=== PATIENT | female | born 1935 | race Caucasian/White ===

== ENCOUNTER 2016-12-26 08:05 | Inpatient (IN) | payer MEDICARE, OTHER ==
[~2016-12-26] VITALS: Ht 165.1 cm; Wt 90.7 kg
[~2016-12-26 08:05] MED LIST: ASPI-535 PO; MONT10TA21 PO; MULT-754 PO; NEBI10TA2 PO; SIMV40TA3 PO
[2016-12-26] MEDS ORDERED: ONDANSETRON 4 MG INJ IV STA (08:06)
[2016-12-26] MEDS ORDERED: morphine 2 MG INJ IV ONE (08:30)
[2016-12-26] MEDS ORDERED: ASPI-664 PO (08:40)
[2016-12-26] MEDS ORDERED: MONT10TA21 PO (08:40)
[2016-12-26] MEDS ORDERED: SIMV40TA2 PO (08:40)
--- NOTE | 2016-12-26 08:40 | RADRPT ---
PROCEDURE: XR Chest. CLINICAL INDICATION: Chest pain. TECHNIQUE: Single frontal view. COMPARISON: None. FINDINGS: The lungs are clear. The heart size is normal. There is calcification in the aorta consistent with atherosclerosis. There is no pleural effusion. There is no pneumothorax. IMPRESSION: 1. Atherosclerosis. 2. Otherwise normal chest radiograph. RPTAT: QQ .Clive Rodriguez MD, MD Date Time Electronically viewed and signed by .Clive Rodriguez MD, MD on 12/26/2016 08:40 .R/
--- NOTE | 2016-12-26 08:41 | RADRPT ---
PROCEDURE: XR left elbow. CLINICAL INDICATION: Left elbow pain. TECHNIQUE: 3 views. Frontal, lateral, and oblique. COMPARISON: No prior study is available for comparison. FINDINGS: There is no fracture or dislocation. The soft tissues are normal. Articular surfaces are intact. There is no lytic or blastic lesion. There is no radiopaque foreign body. IMPRESSION: 1. Unremarkable images of the left elbow. RPTAT: QQ .Clive Rodriguez MD, MD Date Time Electronically viewed and signed by .Clive Rodriguez MD, on 12/26/2016 08:40 .R/
--- NOTE | 2016-12-26 08:42 | RADRPT ---
PROCEDURE: XR Left Hip. CLINICAL INDICATION: Trauma. Left hip pain. TECHNIQUE: Single frontal view. COMPARISON: No prior studies are available for comparison. FINDINGS: There is an acute comminuted intertrochanteric fracture of the left hip with varus deformity. The f racture extends through the left lesser trochanter. There is no other fracture and there is no disl ocation. The soft tissues are normal. Articular surfaces are intact. There is no lytic or blastic lesion. There is no radiopaque foreign body. IMPRESSION: 1. Acute comminuted intertrochanteric fracture of the left hip with varus deformity. RPTAT: QQ .Clive Rodriguez MD, MD Date Time Electronically viewed and signed by .Clive Rodriguez MD, on 12/26/2016 08:41 .R/
[2016-12-26 09:15] LABS: BASOPHIL # 0.1 10^3/ul (0.0-0.1); BASOPHILS % 0.9 % (0.0-2.0); EOSINOPHILS # 0.1 10^3/ul (0.0-0.5); EOSINOPHILS % 1.1 % (0.0-7.0); HEMATOCRIT 40.4 % (37.0-47.0); HEMOGLOBIN 13.6 g/dl (12.0-16.0); LYMPHOCYTES # 2.3 10^3/ul (0.8-2.9); LYMPHOCYTES % 41.4 % (15.0-51.0); MEAN CORPUSCULAR HEMOGLOBIN 32.8 pg (29.0-33.0); MEAN CORPUSCULAR HGB CONC 33.7 g/dl (32.0-37.0); MEAN CORPUSCULAR VOLUME 97.3 fl (82.0-101.0); MEAN PLATELET VOLUME 9.9 fl (7.4-10.4); MONOCYTE # 0.5 10^3/ul (0.3-0.9); MONOCYTES % 8.5 % (0.0-11.0); NEUTROPHILS % 47.7 % (39.0-77.0); PLATELET COUNT 188 10^3/UL (140-415); RED BLOOD COUNT 4.15 10^6/ul (4.20-5.40); RED CELL DISTRIBUTION WIDTH 13.2 % (11.5-14.5); WHITE BLOOD COUNT 5.5 10^3/ul (4.8-10.8)
--- NOTE | 2016-12-26 09:25 | ERA ---
ER Documentation Chief Complaint Date/Time DATE: 12/26/16 TIME: 09:22 Chief Complaint BIB [facility] FOR GROUND LEVEL FALL. LEFT HIP PAIN WITH SHORTENING. HPI This is an 81-year-old female who presents to the emergency room after a ground- level fall. The patient states that she was taking her trash out and she slipped and fell. The patient is stating that she is having pain in her left hip. She could not ambulate and 911 was called. EMS transferred the patient to the ER. The patient denies hitting her head or any loss of consciousness. ROS All systems reviewed and are negative except as per history of present illness. Medications Home Meds Reported Medications Simvastatin* (Zocor*) 40 Mg Tablet, 40 MG PO QHS, #30 TAB 12/26/16 Montelukast Sodium* (Singulair*) 10 Mg Tablet, 10 MG PO QHS, #30 TAB 12/26/16 Discontinued Reported Medications Aspirin (Low Dose Aspirin) 81 Mg Tablet.dr, 81 MG PO DAILY, #30 TAB 12/26/16 Aspirin Ec (Aspir 81) 81 Mg Tablet.dr, 81 MG PO MWF 11/07/11 Multivitamins W-Minerals/Lut (Centrum Silver Tablet) 1 Tab Tablet, 1 TAB PO DAILY 11/07/11 Simvastatin (Simvastatin) 40 Mg Tablet, 40 MG PO HS 11/07/11 Montelukast Sodium* (Singulair*) 10 Mg Tablet, 10 MG PO DAILY 11/07/11 Nebivolol Hcl* (Bystolic*) 10 Mg Tablet, 10 MG PO DAILY 11/07/11 Allergies Allergies: Coded Allergies: No Known Allergies (Verified Allergy, Unknown, 12/26/16) PMhx/Soc History of Surgery: Yes (LEFT WRIST ORIF; LEFT KNEE OPA) Anesthesia Reaction: No Hx Neurological Disorder: No Hx Respiratory Disorders: Yes Hx Cardiac Disorders: Yes Hx Psychiatric Problems: No Hx Miscellaneous Medical Probl: Yes (HYPERLIPIDEMIA) Hx Alcohol Use: Yes (WINE NIGHTLY) Hx Substance Use: No Hx Tobacco Use: No Smoking Status: Never smoker Physical Exam Vitals Vital Signs Date Time Temp Pulse Resp B/P Pulse Ox O2 Delivery O2 Flow Rate FiO2 12/26/16 08:22 Nasal Cannula 2 12/26/16 08:09 97.9 80 19 141/86 100 Physical Exam INITIAL VITAL SIGNS: Reviewed by me GENERAL: The patient is well developed and appropriate for usual state of health in no apparent distress HEENT: Pupils equal, round, and reactive to light. EOMI. There is no scleral icterus. NECK: C-spine is soft and supple, there is no meningismus. There is no cervical lymphadenopathy. LUNGS: Clear to auscultation bilaterally. There are no rales, wheezes or rhonchi. HEART: Regular rate and rhythm, no murmurs, clicks, rubs or gallops. ABDOMEN: Soft, non-tender, non-distended. There are bowel sounds in all four quadrants. No rebound or guarding. EXTREMITIES: Shortening of the left lower extremity with external rotation, there is no peripheral cyanosis or edema. No focal swelling or erythema. NEUROLOGICAL: The patient moves all four extremities with 5/5 strength. Cranial nerves II - XII are intact. Normal gait. Alert and oriented SKIN: There is no apparent rash or petechiae. HEME/LYMPHATIC: There is no evidence of excessive bruising or lymphedema. PSYCHIATRIC: The patient does not appear anxious or depressed. Result Diagram: 12/26/16 0840 Results 24 hrs Laboratory Tests Test 12/26/16 08:40 White Blood Count 5.510^3/ul Red Blood Count 4.1510^6/ul Hemoglobin 13.6g/dl Hematocrit 40.4% Mean Corpuscular Volume 97.3fl Mean Corpuscular Hemoglobin 32.8pg Mean Corpuscular Hemoglobin Concent 33.7g/dl Red Cell Distribution Width 13.2% Platelet Count 89479^3/UL Mean Platelet Volume 9.9fl Neutrophils % 47.7% Lymphocytes % 41.4% Monocytes % 8.5% Eosinophils % 1.1% Basophils % 0.9% Nucleated Red Blood Cells % 0.0/100WBC Neutrophils # (Manual) 310^3/ul Lymphocytes # 2.310^3/ul Monocytes # 0.510^3/ul Eosinophils # 0.110^3/ul Basophils # 0.110^3/ul Nucleated Red Blood Cells # 0.010^3/ul Current Medications Medications (Trade) Dose Ordered Sig/Dangelo Route PRN Reason Start Time Stop Time Status Last Admin Dose Admin Morphine Sulfate (morphine) 2 mg ONCE ONCE IV 12/26/16 08:30 12/26/16 08:31 DC 12/26/16 09:06 Ondansetron HCl (Zofran Inj) 4 mg ONCE STAT IV 12/26/16 08:06 12/26/16 08:08 DC 12/26/16 09:03 Procedures/MDM Chest X-ray 1V Interpreted by me: Soft Tissue: No acute abnormalities Bones: No acute abnormalities Mediastinum/Cardiac Silhouette/Lungs: [No acute abnormalities] X-ray Elbow 3V Interpreted by me: Fat Pads: [Normal] Bones: [No fracture] Joints: [No dislocation] Foreign body: [None] X-ray Hip 2V Interpreted by me: Bones: Left-sided intertrochanteric fracture Joints: [No dislocation] Foreign body: [None] EKG: Rate/Rhythm: [Normal Sinus Rhythm] QRS, ST, T-waves: [No changes consistent w/ acute ischemia] Impression: [No evidence of ischemia or arrhythmia] This 81-year-old female presents to the ER for evaluation of left-sided hip pain. When I evaluated this patient she did have shortening and external rotation of her left hip. The patient was found to have a left-sided intertrochanteric fracture. She will be placed in for admission at this time for orthopedic evaluation by our orthopedist, Dr. Martin. She will be admitted to the hospitalist, Dr. son. She is [facility] for [facility] at this time. She is aware of her condition. Her pain is controlled with morphine at this time. She will be kept n.p.o. Pereira was placed in the emergency room as well. Departure Diagnosis: Primary Impression: Intertrochanteric fracture of left femur Additional Impression: Fall from ground level Condition: Stable JARAD BATISTA DO Dec 26, 2016 09:25
[2016-12-26 09:36] LABS: ANION GAP 14 (8-16); BLOOD UREA NITROGEN 17 mg/dl (7-20); CALCIUM 9.3 mg/dl (8.4-10.2); CARBON DIOXIDE 23 mmol/L (21-31); CHLORIDE 106 mmol/L (97-110); CREATININE 0.87 mg/dl (0.44-1.00); GLUCOSE 105 mg/dl (70-220); POTASSIUM 4.7 mmol/L (3.5-5.1); SODIUM 138 mmol/L (135-144)
[2016-12-26] MEDS ORDERED: SOD CHLORIDE 0.9% 1,000 ML IV SCH (09:45)
[2016-12-26] MEDS ORDERED: ACETAMINOPHEN 325 MG TAB PO PRN (10:00)
[2016-12-26] MEDS ORDERED: ONDANSETRON 4 MG INJ IV PRN (10:00)
[2016-12-26 10:10] LABS: TROPONIN-I < 0.012 ng/ml (0.00-0.12)
[2016-12-26] MEDS ORDERED: DEXTROSE 5%-0.45% NACL 1,000 ML IV SCH (11:21)
[2016-12-26] MEDS ORDERED: NACL 0.9% 3 ML SYG IV SCH (11:30)
[2016-12-26] MEDS ORDERED: HYDROmorphONE 1 MG/ML SYG IV STA (11:42)
[2016-12-26 14:54] LABS: CK-MB 0.73 ng/ml (0.0-2.4); TROPONIN-I 0.033 ng/ml (0.00-0.12)
--- NOTE | 2016-12-26 15:20 | CONS ---
DATE OF ADMISSION: 12/26/2016 DATE OF CONSULTATION: 12/26/2016 CHIEF COMPLAINT: Left hip pain. HISTORY OF PRESENT ILLNESS: This is an 81-year-old female, who had a ground level fall at home. She was complaining of left groin pain. She was unable to stand after the fall. She denies any prior groin pain. She denies any loss of consciousness. She denies any chest pain. She has no other complaints. PAST MEDICAL HISTORY: Dyslipidemia, COPD. MEDICATION: 1. Simvastatin 40 mg daily. 2. Singular 10 mg daily. 3. Multivitamins. PAST SURGICAL HISTORY: Left wrist open reduction and internal fixation, left knee arthroscopy. SOCIAL HISTORY: She lives with her . Denies tobacco, alcohol or drug use. FAMILY HISTORY: Noncontributory. ALLERGIES: NO KNOWN DRUG ALLERGIES. REVIEW OF SYSTEMS: Negative, except per HPI. PHYSICAL EXAMINATION: VITAL SIGNS: 97.9, 141/86, pulse of 80, respiratory rate of 19. GENERAL: Patient is alert and oriented x3. She is cooperative. LEFT LOWER EXTREMITY: There are no open wounds. There are no deformities. She has 5/5 function of her gastroc soleus, tibialis anterior. Her calf is soft, nontender. She has a palpable dorsalis pedis pulse. LABORATORY DATA: White blood cell count 5.5, hemoglobin 13 6, hematocrit 40.4, platelets 188,000. X-RAYS: Left hip: X-rays, left hip, demonstrate an oblique displaced intertrochanteric femur fracture. There is displacement of the lesser trochanter. There is slight comminution of the greater trochanter. IMPRESSION: An 81-year-old female, who had a mechanical fall resulting in a left closed oblique displaced intertrochanteric femur fracture. PLAN: Patient will be nonweightbearing on left lower extremity. She will be admitted to the hospitalist service. She will have bilateral lower extremity SCDs while in bed. I discussed treatment options with the patient. I discussed the risks associated with surgery, which include infection, deep venous thrombosis, pulmonary embolism, damage to neurovascular structures, heart attack, stroke, need for blood transfusion, risks associated with anesthesia and even . I also explained to the patient and her [id number] that there is up to a 35 percent chance of 1-year mortality. The plan will be to proceed with the left hip cephalomedullary nailing. All questions were answered. Dictated By: Sanjay King MD /marixa/citlaly /Document#: [id number]
--- NOTE | 2016-12-26 16:14 | HP ---
Date/Time of Note Date/Time of Note DATE: 12/26/16 TIME: 16:00 Assessment/Plan VTE Prophylaxis VTE Prophylaxis Intervention: other Lines/Catheters IV Catheter Type (from Nrs): Saline Lock Urinary Cath still in place: No Assessment/Plan Chief Complaint/Hosp Course 81 yo female without significant PMH who presents after hip fracture from mechanical fall Hip fracture: - Needs OR per Dr Martin. Likely on Friday - Patient is medically optimized for surgery VTE ppx: LWMH until 12 hour before OR Problems: HPI/ROS Admit Date/Time Admit Date/Time Hx of Present Illness 81 yo female wihtout significant PMH who presents after falling in her garden. Boyds immediate pain in hip and cracking. Laid in garden for an hour before found. Brought to ED and found to have hip fracture. Very clear that she tripped over a small gate in her garden, this was not syncope. Currently feels well without pain at rest Denies h/o angina or CHF. Easily able to climb a flight of stairs without symptoms prior to this. PMH/Family/Social Past Medical History Medical History: no pertinent history Past Surgical History Past Surgical Hx: noncontributory Social History Alcohol Use: none Smoking Status: Never smoker Drug Use: none Exam/Review of Systems Vital Signs Vitals Vital Signs Date Time Temp Pulse Resp B/P Pulse Ox O2 Delivery O2 Flow Rate FiO2 12/26/16 11:46 78 16 125/72 98 Room Air 12/26/16 08:22 2 12/26/16 08:09 97.9 Exam Exam WEll appearing elderly femal resting comfortably in NAD RRR, no m/r/g Ctab abd soft nt nd LLE is shortened and ext rotated, good pulses, full sensation No edema Labs Result Diagram: 12/26/16 0840 12/26/16 0840 Medications Medications Current Medications Sodium Chloride (NS) 1,000 ml @ 80 mls/hr [id number] IV Last administered on 12/26t 13:07; Admin Dose 80 MLS/HR; Start 12/26/16 at 09:45; Stop 12/26/16 at 22: 14 Acetaminophen/ Hydrocodone Bitart ([place] (5/325)) 2 tab Q6H PRN PO SEVERE PAIN LEVEL 7-10; Start 12/26/16 at 11:30 HUMA MAHMOOD MD Dec 26, 2016 16:10
[2016-12-26 16:29] VITALS: TEMP 97.4
[2016-12-26] MEDS ORDERED: ENOXAPARIN 30 MG/0.3 ML SYG SC ONE (16:30)
--- NOTE | 2016-12-26 17:00 | RADRPT ---
PROCEDURE: XR Left Shoulder. CLINICAL INDICATION: Trauma. Left shoulder pain and decreased range of motion. TECHNIQUE: Three views. Frontal internal rotation, frontal external rotation, and scapular Y-view . COMPARISON: No prior study is available for comparison. FINDINGS: There is no fracture or dislocation. The soft tissues are normal. Articular surfaces are intact. There is no lytic or blastic lesion. There is no radiopaque foreign body. IMPRESSION: 1. Normal images of the left shoulder. RPTAT: QQ .Clive Rodriguez MD, MD Date Time Electronically viewed and signed by .Clive Rodriguez MD, MD on 12/26/2016 17:00 .R/
[2016-12-26 17:32] VITALS: BP 127/64; RESP 18
[2016-12-26 17:50] VITALS: Ht 165.1 cm; Wt 90.7 kg
[2016-12-26 17:51] VITALS: BP 127/64; PULSE 89; RESP 17
[2016-12-26 19:23] VITALS: BP 111/58; RESP 16
[2016-12-26] MEDS: MONTELUKAST 10 MG TAB PO SCH (20:13)
[2016-12-26 21:07] LABS: CK-MB 0.96 ng/ml (0.0-2.4); TROPONIN-I 0.027 ng/ml (0.00-0.12)
[2016-12-27] MEDS: HYDROCODONE/APAP (5/325) TAB PO PRN ×3 (00:47→15:36)
[2016-12-27 02:00] VITALS: BP 104/54; RESP 18
[2016-12-27 05:59] LABS: BASOPHILS % 0.1 % (0.0-2.0); HEMATOCRIT 33.2 % (37.0-47.0); HEMOGLOBIN 10.9 g/dl (12.0-16.0); LYMPHOCYTES # 2.2 10^3/ul (0.8-2.9); LYMPHOCYTES % 25.3 % (15.0-51.0); MEAN CORPUSCULAR HEMOGLOBIN 32.4 pg (29.0-33.0); MEAN CORPUSCULAR HGB CONC 32.8 g/dl (32.0-37.0); MEAN CORPUSCULAR VOLUME 98.8 fl (82.0-101.0); MEAN PLATELET VOLUME 10.2 fl (7.4-10.4); MONOCYTE # 0.9 10^3/ul (0.3-0.9); MONOCYTES % 10.5 % (0.0-11.0); NEUTROPHILS % 63.9 % (39.0-77.0); PLATELET COUNT 180 10^3/UL (140-415); RED BLOOD COUNT 3.36 10^6/ul (4.20-5.40); RED CELL DISTRIBUTION WIDTH 13.4 % (11.5-14.5); WHITE BLOOD COUNT 8.7 10^3/ul (4.8-10.8)
[2016-12-27 06:37] LABS: PARTIAL THROMBOPLASTIN TIME 30.1 Sec (25.0-35.0)
[2016-12-27 06:46] LABS: INR 1.17; PT RATIO 1.2
[2016-12-27 06:51] LABS: ALBUMIN 3.2 g/dl (3.3-4.9); ALBUMIN/GLOBULIN RATIO 1.1; BILIRUBIN,INDIRECT 0.3 mg/dl (0-1.1); BILIRUBIN,TOTAL 0.3 mg/dl (0.2-1.3); CALCIUM 8.7 mg/dl (8.4-10.2); CREATININE 0.94 mg/dl (0.44-1.00); TOTAL PROTEIN 6.1 g/dl (6.1-8.1)
[2016-12-27 08:10] VITALS: BP 97/51; RESP 20
--- NOTE | 2016-12-27 18:01 | PN ---
Date/Time of Note Date/Time of Note DATE: 12/27/16 TIME: 17:58 Assessment/Plan VTE Prophylaxis VTE Prophylaxis Intervention: LMWH Lines/Catheters IV Catheter Type (from Nrsg): Peripheral IV Urinary Cath still in place: Yes Reason Cath still needed: other (indicate) (hip fracture ) Assessment/Plan Assessment/Plan 81 yo female 1. S/p Fall 2. Left hip fracture, Intertrochanteric, Comminuted 3. Intractable left hip pain Plan: pt has no significant pMHX, lab work up unremakabel, medically optimized for surgery wtih appropriate sugical risks VTE ppx: LWMH until 12 hour before OR ORtho is plannign for surgery tomorrow Subjective 24 Hr Interval Summary Free Text/Dictation no acute events, Bp stable,afebrile, BP stable Exam/Review of Systems Vital Signs Vitals Vital Signs Date Time Temp Pulse Resp B/P Pulse Ox O2 Delivery O2 Flow Rate FiO2 12/27/16 08:10 98.0 80 20 97/51 98 12/27/16 02:25 Nasal Cannula 4.0 Intake and Output 12/26/16 12/26/16 12/27/16 15:00 23:00 07:00 Intake Total 300 ml 120 ml Output Total 400 ml Balance 300 ml -280 ml Exam WEll appearing elderly femal resting comfortably in NAD RRR, no m/r/g Ctab abd soft nt nd LLE is shortened and ext rotated, good pulses, full sensation No edema Results Result Diagram: 12/27/16 0526 12/27/16 0526 Results 24 hrs Laboratory Tests Test 12/26/16 20:29 12/27/16 05:26 Creatine Kinase 64 Creatine Kinase Index 1.5 Creatinine Kinase MB (Mass) 0.96 Troponin I 0.027 White Blood Count 8.7 # Red Blood Count 3.36 L Hemoglobin 10.9 L Hematocrit 33.2 L Mean Corpuscular Volume 98.8 Mean Corpuscular Hemoglobin 32.4 Mean Corpuscular Hemoglobin Concent 32.8 Red Cell Distribution Width 13.4 Platelet Count 180 Mean Platelet Volume 10.2 Neutrophils % 63.9 Lymphocytes % 25.3 Monocytes % 10.5 Eosinophils % 0.0 Basophils % 0.1 Nucleated Red Blood Cells % 0.0 Neutrophils # (Manual) 5.5 Lymphocytes # 2.2 Monocytes # 0.9 Eosinophils # 0.0 Basophils # 0.0 Nucleated Red Blood Cells # 0.0 Prothrombin Time 15.0 H Prothrombin Time Ratio 1.2 INR International Normalized Ratio 1.17 Activated Partial Thromboplast Time 30.1 Sodium Level 139 Potassium Level 5.0 Chloride Level 104 Carbon Dioxide Level 26 Anion Gap 14 Blood Urea Nitrogen 22 H Creatinine 0.94 Glucose Level 116 Calcium Level 8.7 Total Bilirubin 0.3 Direct Bilirubin 0.00 Indirect Bilirubin 0.3 Aspartate Amino Transf (AST/SGOT) 19 Alanine Aminotransferase (ALT/SGPT) 28 Alkaline Phosphatase 73 Total Protein 6.1 Albumin 3.2 L Globulin 2.90 Albumin/Globulin Ratio 1.10 Medications Medications Current Medications Acetaminophen/ Hydrocodone Bitart ([place] (5/325)) 2 tab Q6H PRN PO SEVERE PAIN LEVEL 7-10 Last administered on 12/27/16 15:36; Admin Dose 2 TAB; Start at 11:30 Montelukast Sodium 10 mg 10 mg QHS PO Last administered on 12/26/16 20:13; Admin Dose 10 MG; Start 12/26/16 at 21:00 Dextrose/Sodium Chloride (D5-1/2ns) 1,000 ml @ 70 mls/hr [id number] IV ; Start at 23:59 JEN LIANG MD Dec 27, 2016 18:00
[2016-12-27] MEDS: MONTELUKAST 10 MG TAB PO SCH (19:42)
[2016-12-27 20:07] VITALS: BP 119/57; RESP 18
[2016-12-27] MEDS: DEXTROSE 5%-0.45% NACL 1,000 ML IV SCH (23:59)
[2016-12-28] VITALS (22 sets, daily range): BP systolic 93–123; BP diastolic 45–71; PULSE 82–129; RESP 10–19
[2016-12-28 06:33] LABS: BASOPHILS % 0.4 % (0.0-2.0); EOSINOPHILS % 0.2 % (0.0-7.0); HEMATOCRIT 29.1 % (37.0-47.0); HEMOGLOBIN 9.6 g/dl (12.0-16.0); LYMPHOCYTES # 2.2 10^3/ul (0.8-2.9); MEAN CORPUSCULAR HEMOGLOBIN 32.2 pg (29.0-33.0); MEAN CORPUSCULAR VOLUME 97.7 fl (82.0-101.0); MEAN PLATELET VOLUME 10.6 fl (7.4-10.4); MONOCYTES % 12.6 % (0.0-11.0); NEUTROPHILS % 59.7 % (39.0-77.0); PLATELET COUNT 158 10^3/UL (140-415); RED BLOOD COUNT 2.98 10^6/ul (4.20-5.40); RED CELL DISTRIBUTION WIDTH 13.2 % (11.5-14.5); WHITE BLOOD COUNT 8.3 10^3/ul (4.8-10.8)
[2016-12-28 07:14] LABS: ALBUMIN/GLOBULIN RATIO 0.96; BILIRUBIN,INDIRECT 0.4 mg/dl (0-1.1); BILIRUBIN,TOTAL 0.4 mg/dl (0.2-1.3); CALCIUM 8.5 mg/dl (8.4-10.2); CREATININE 0.75 mg/dl (0.44-1.00); POTASSIUM 4.6 mmol/L (3.5-5.1); TOTAL PROTEIN 6.1 g/dl (6.1-8.1)
[2016-12-28 07:27] LABS: INR 1.02; PARTIAL THROMBOPLASTIN TIME 29.2 Sec (25.0-35.0); PROTIME 13.4 Sec (12.2-14.2)
[2016-12-28] MEDS ORDERED: ROCURONIUM 50 MG INJ ONE (07:52)
[2016-12-28] MEDS ORDERED: PROPOFOL 20 ML ONE (07:52)
[2016-12-28] MEDS ORDERED: FENTAnyl 50 MCG/ML VIAL ONE (07:52)
[2016-12-28] MEDS ORDERED: LIDOCAINE 2% (SDV) 5 ML INJ ONE (07:52)
[2016-12-28] MEDS ORDERED: MIDAZOLAM 1 MG/ML 2 ML INJ ONE (07:53)
[2016-12-28] MEDS ORDERED: ROPIVACAINE 0.5 % 30 ML VIAL ONE ×2 (07:53→07:54)
[2016-12-28] MEDS ORDERED: MEPERIDINE 25 MG INJ IV PRN (08:00)
[2016-12-28] MEDS ORDERED: HYDROmorphONE (0.2 MG/ML) 10ML SYG IV PRN ×2 (08:00)
[2016-12-28] MEDS ORDERED: FENTAnyl 50 MCG/ML VIAL IV PRN (08:00)
[2016-12-28] MEDS ORDERED: PROCHLORPERAZINE 10 MG INJ IV PRN (08:00)
[2016-12-28] MEDS ORDERED: hydrALAzine 20 MG INJ IV PRN (08:00)
[2016-12-28] MEDS ORDERED: LABETALOL HCL 20MG INJ IV PRN (08:00)
[2016-12-28] MEDS ORDERED: EPHEDrine SULFATE 50 MG/5 ML SYG IV PRN (08:00)
[2016-12-28] MEDS ORDERED: ONDANSETRON 4 MG INJ IV PRN (08:00)
[2016-12-28] MEDS ORDERED: DIPHENHYDRAMINE 50 MG INJ IV PRN (08:00)
[2016-12-28] MEDS ORDERED: PHENYLephrine (100 MCG/ML) 5ML SYG ONE ×2 (08:16→11:19)
[2016-12-28] MEDS ORDERED: METOCLOPRAMIDE 10 MG INJ ONE (09:02)
[2016-12-28] MEDS ORDERED: ONDANSETRON 4 MG INJ ONE ×2 (09:02→11:54)
[2016-12-28] MEDS ORDERED: DEXAMETHASONE 4 MG/ML 1 ML INJ ONE (09:02)
[2016-12-28] MEDS ORDERED: ALBUMIN HUMAN 5% 250 ML ONE ×2 (09:19→11:22)
[2016-12-28] MEDS ORDERED: ACETAMINOPHEN 1000MG/100ML IV 100 ML ONE (09:19)
[2016-12-28] MEDS ORDERED: oxyCODONE 5 MG TAB PO PRN ×2 (09:30)
[2016-12-28] MEDS ORDERED: POLYMYXIN/BACITRACIN 1L IRRIG IRR ONE (09:38)
[2016-12-28] MEDS ORDERED: HYDROmorphONE 2 MG/ML SYG ONE (11:46)
[2016-12-28] MEDS ORDERED: SUGAMMADEX SODIUM 200 MG/2 ML VIAL IV ONE (11:48)
--- NOTE | 2016-12-28 13:05 | SIPON ---
Date/Time of Note Date/Time of Note DATE: 12/28/16 TIME: 13:03 Operative Report Preoperative Diagnosis Left intertrochanteric femur fracture Postoperative Diagnosis Same Operation/Procedure Performed 1. Left hip cephalomedullary nail, Mod 22 2. Interpretation left hip x-ray 2v, Left femur 2v Surgeon: BRANDIE ORO MD Anesthesia Type: general Estimated Blood Loss: other Transfusion Required: no Specimen: none Grafts/Implants Gamma Nail 11 x 380mm, 115mm lag screw, 45mm distal locking screw Complications: no BRANDIE ORO MD Dec 28, 2016 13:05
[2016-12-28] MEDS: CEFAZOLIN 1 GM/50 ML (PMX) 50 ML IVPB SCH ×2 (13:28→22:44)
[2016-12-28 13:29] LABS: BASOPHILS % 0.1 % (0.0-2.0); HEMATOCRIT 20.9 % (37.0-47.0); HEMOGLOBIN 7.1 g/dl (12.0-16.0); LYMPHOCYTES # 0.9 10^3/ul (0.8-2.9); LYMPHOCYTES % 6.6 % (15.0-51.0); MEAN CORPUSCULAR HEMOGLOBIN 33.6 pg (29.0-33.0); MEAN CORPUSCULAR VOLUME 99.1 fl (82.0-101.0); MEAN PLATELET VOLUME 9.8 fl (7.4-10.4); MONOCYTE # 0.8 10^3/ul (0.3-0.9); MONOCYTES % 6.1 % (0.0-11.0); NEUTROPHILS % 86.7 % (39.0-77.0); PLATELET COUNT 176 10^3/UL (140-415); RED BLOOD COUNT 2.11 10^6/ul (4.20-5.40); RED CELL DISTRIBUTION WIDTH 13.1 % (11.5-14.5); WHITE BLOOD COUNT 13.7 10^3/ul (4.8-10.8)
[2016-12-28 13:46] LABS: CALCIUM 7.5 mg/dl (8.4-10.2); CREATININE 0.81 mg/dl (0.44-1.00); POTASSIUM 4.6 mmol/L (3.5-5.1)
--- NOTE | 2016-12-28 14:28 | OPR ---
DATE OF OPERATION: 12/28/2016 PREOPERATIVE DIAGNOSIS: Left displaced 3-part intertrochanteric femur fracture. POSTOPERATIVE DIAGNOSIS: Left displaced 3-part intertrochanteric femur fracture. OPERATION PERFORMED: 1. Left hip open reduction, internal fixation with cephalomedullary nailing. CPT code 12963 with modifier 22 for complexity. 2. Interpretation of left hip x-ray, 2 views. 3. Interpretation of left femur x-rays, 2 views. ANESTHESIA: General. ANESTHESIOLOGIST: Dr. Mark. ESTIMATED BLOOD LOSS: 500 mL. COMPLICATIONS: None. SPECIMENS: None. DISPOSITION: PACU in stable condition. IMPLANT: prem gamma nail 11x 380 mm, 115mm lag screw, 45mm distal locking screw. INDICATIONS FOR PROCEDURES: An 81-year-old female, who had a mechanical fall resulting in a left closed displaced intertrochanteric femur fracture. Risks, benefits, and alternatives to surgical intervention were discussed with the patient and her family and informed consent was obtained. The risks of surgery include, but are not limited to, infection, deep venous thrombosis, pulmonary embolism, damage to neurovascular structures, need for blood transfusion, heart attack, stroke, and risks associated with anesthesia, malunion, nonunion, and need for revision surgery, and . OPERATIVE PROCEDURE: Patient was met in the preoperative suite. The correct op site was confirmed and marked. She was then brought into the operating room. After induction of general anesthesia, she was placed in a supine position on the fracture table. A closed reduction attempt was made on the fracture table. Reduction was obtained on the AP view, but no reduction was able to be obtained on the lateral view due to the flexion of the proximal fragment of the fracture. At this point, the left lower extremity was prepped and draped in the usual sterile fashion. Before starting, the timeout was taken to identify the correct operative site and confirmed that preoperative antibiotics consisting of 2 g of IV Ancef were administered. At this point, a small incision was made proximal to the greater trochanter. The guidewire was then placed at the tip of the greater trochanter. Due to the extensive flexion of the proximal fragment, reduction was unable to be maintained by closed means. At this point, a small 2 cm incision was made at the site of the fracture. Incision was carried down to the fascia. The fascia was then incised. Reduction forceps were then used to reduce the fracture. The guidewire was then advanced under fluoroscopic guidance, including AP and lateral of the hip as well as AP and lateral of the femur. The ball tipped guidewire was then advanced down the canal under fluoroscopic view. It was then measured to be 395 mm. Sequential reaming was then begun with a 10 mm reamer going up to a 13 mm reamer. A size 11 mm by 380 mm nail was then advanced over the guidewire under fluoroscopic guidance. Next, the trocar was then placed for the lag screw. The guidewire was then placed in the center position of the femoral head and neck under fluoroscopic guidance. It was then measured to 115 mm. The reamer was then advanced over the guidewire. A 115 mm lag screw was then placed. Attention was then turned to the distal locking hole. After making a small stab incision under of fluoroscopic imaging, a drill was then used to drill into the dynamic hole. The drill was then advanced bicortically and measured to 45 mm. A 45 mm screw was then placed into the dynamic hole. It was then confirmed in both AP and lateral x-rays to be in appropriate position. Final x-rays were then taken, which demonstrated that the fracture was in acceptable alignment with cortical contact. The wounds were then thoroughly irrigated. The fascia was closed using number 1 Vicryl interrupted [id number] fashion. The subcutaneous tissue was closed using 2-0 Vicryl and the skin with galdino. A sterile dressing was applied. The patient was awakened and taken to the postoperative care unit in stable condition. POSTOPERATIVE CARE: Patient will be weightbearing as tolerated. Patient will work with physical therapy. She will receive postoperative doses of IV Ancef. She will be placed on aspirin 325 mg p.o. b.i.d. for 6 weeks. Upon discharge, she will follow up in my office within 2 weeks postoperatively. MOD 22: This case was complex due to type of fracture, time required for surgery , difficulty with reduction fracture, and patient obesity. Dictated By: Sanjay King MD /marixa/saw /Document#: [id number] GRISELDA
--- NOTE | 2016-12-28 14:33 | RADRPT ---
PROCEDURE: XR FEMUR. CLINICAL INDICATION: Postop left femur. TECHNIQUE: AP and lateral views of the left femur were obtained. COMPARISON: 12/26/2016. FINDINGS: Patient is status post ORIF of intertrochanteric fracture by means of a femoral intramedullary frederic a nd dynamic compression screw. The fracture is affixed in good position and alignment. There is per sistent displacement of the lesser trochanter. Skin galdino are present and soft tissue air is audie cative of recent postop state. IMPRESSION: 1. Appropriate appearance to left femur after ORIF of intertrochanteric fracture in good position an d alignment. RPTAT: XX .Jorden Cadet MD, Date Time Electronically viewed and signed by .Jorden Cadet MD, on 12/28/2016 14:33 .T/
--- NOTE | 2016-12-28 14:35 | RADRPT ---
PROCEDURE: XR left Hip. CLINICAL INDICATION: Postop. TECHNIQUE: AP and frog lateral views of the left hip were performed. COMPARISON: 12/26/2016. FINDINGS: The patient is status post ORIF of left intertrochanteric fracture by means of intramedullary frederic an d dynamic compression screw. The fracture is in good position and alignment. There is persistent d isplacement of the lesser trochanter component. There is soft tissue air and skin galdino indicatin g immediate postop state. IMPRESSION: 1. Good position and alignment of left intertrochanteric fracture after ORIF by means of intramedul jason frederic and dynamic compression screw. RPTAT: XX .Jorden Cadet MD, Date Time Electronically viewed and signed by .Jorden Cadet MD, on 12/28/2016 14:34 .T/
--- NOTE | 2016-12-28 14:38 | RADRPT ---
PROCEDURE: Fluoroscopic guidance with x-ray images during ORIF of left femoral fracture. CLINICAL INDICATION: ORIF ofleft femoral fracture. TECHNIQUE: 14 x-ray images were obtained during ORIF ofleft femoral fracture. . COMPARISON: None available FINDINGS: 359.8 seconds of fluoroscopy time was utilized during pacemaker insertion. 14 x-ray images were obt ained during the procedure in progress for guidance. Cumulative dose total is 116.82 mGy. The left f emoral fracture was affixed in good position and alignment using an intramedullary frederic and dynamic c ompression screw. Procedure was performed by Dr. King. IMPRESSION: 1. Fluoroscopic guidance with x-ray images obtained for ORIF ofleft femoral fracture. . RPTAT: XX .Jorden Cadet MD, Date Time Electronically viewed and signed by .Jorden Cadet MD, on 12/28/2016 14:37 .T/
[2016-12-28] MEDS: DEXTROSE 5%-0.45% NACL 1,000 ML IV SCH (14:50)
--- NOTE | 2016-12-28 16:14 | PN ---
Date/Time of Note Date/Time of Note DATE: 12/28/16 TIME: 16:13 Assessment/Plan VTE Prophylaxis VTE Prophylaxis Intervention: LMWH Lines/Catheters IV Catheter Type (from Nrsg): Peripheral IV Urinary Cath still in place: Yes Reason Cath still needed: urinary retention Assessment/Plan Chief Complaint/Hosp Course 81 yo female without significant PMH who presents after hip fracture from mechanical fall Hip fracture: - s/p ORIF today - Pain control VTE ppx: [facility] starting tomorrow Problems: Subjective 24 Hr Interval Summary Free Text/Dictation Went to OR for hip surgery today, was difficult procedure Exam/Review of Systems Vital Signs Vitals Vital Signs Date Time Temp Pulse Resp B/P Pulse Ox O2 Delivery O2 Flow Rate FiO2 12/28/16 14:35 98.1 116 18 95/55 94 12/28/16 13:51 Room Air 12/28/16 12:41 10.0 Results Result Diagram: 12/28/16 1315 12/28/16 1315 Results 24 hrs Laboratory Tests Test 12/28/16 04:30 12/28/16 04:50 12/28/16 13:15 Sodium Level 134 L 136 Potassium Level 4.6 4.6 Chloride Level 99 103 Carbon Dioxide Level 28 19 L Anion Gap 12 19 #H Blood Urea Nitrogen 18 15 Creatinine 0.75 0.81 Glucose Level 107 202 Calcium Level 8.5 7.5 L Total Bilirubin 0.4 Direct Bilirubin 0.00 Indirect Bilirubin 0.4 Aspartate Amino Transf (AST/SGOT) 20 Alanine Aminotransferase (ALT/SGPT) 24 Alkaline Phosphatase 64 Total Protein 6.1 Albumin 3.0 L Globulin 3.10 Albumin/Globulin Ratio 0.96 White Blood Count 8.3 13.7 #H Red Blood Count 2.98 L 2.11 #L Hemoglobin 9.6 L 7.1 #L Hematocrit 29.1 L 20.9 #L Mean Corpuscular Volume 97.7 99.1 Mean Corpuscular Hemoglobin 32.2 33.6 H Mean Corpuscular Hemoglobin Concent 33.0 34.0 Red Cell Distribution Width 13.2 13.1 Platelet Count 158 176 Mean Platelet Volume 10.6 H 9.8 Neutrophils % 59.7 86.7 H Lymphocytes % 27.0 6.6 L Monocytes % 12.6 H 6.1 Eosinophils % 0.2 0.0 Basophils % 0.4 0.1 Nucleated Red Blood Cells % 0.0 0.0 Neutrophils # (Manual) 4.9 11.9 H Lymphocytes # 2.2 0.9 Monocytes # 1.0 H 0.8 Eosinophils # 0.0 0.0 Basophils # 0.0 0.0 Nucleated Red Blood Cells # 0.0 0.0 Prothrombin Time 13.4 Prothrombin Time Ratio 1.0 INR International Normalized Ratio 1.02 Activated Partial Thromboplast Time 29.2 Medications Medications Current Medications Acetaminophen/ Hydrocodone Bitart ([place] (5/325)) 2 tab Q6H PRN PO SEVERE PAIN LEVEL 7-10 Last administered on 12/27/16 15:36; Admin Dose 2 TAB; Start at 11:30 Montelukast Sodium 10 mg 10 mg QHS PO Last administered on 12/27/16 19:42; Admin Dose 10 MG; Start 12/26/16 at 21:00 Dextrose/Sodium Chloride (D5-1/2ns) 1,000 ml @ 70 mls/hr [id number] IV Last administered on 12/28/16 14:50; Admin Dose 70 MLS/HR; Start 12/27/16 at 23:59 Oxycodone HCl (Roxicodone) 5 mg ONCE PRN PO PAIN LEVEL 1-5; Start 12/28/16 at 09:30; Stop 12/28/16 at 19:00 Oxycodone HCl 10 mg 10 mg ONCE PRN PO PAIN LEVEL 6-10; Start 12/28/16 at 09:30 ; Stop 12/28/16 at 19:00 Cefazolin Sodium (Ancef 1 Gm/50 ml (Pmx)) 50 ml @ 100 mls/hr Q8 IVPB Last administered on 12/28/16 13:28; Admin Dose 100 MLS/HR; Start 12/28/16 at 14:00 Senna/Docusate Sodium (Senokot-S) 1 tab BID PO ; Start 12/28/16 at 21:00 Aspirin (Ecotrin) 325 mg BID PO ; Start 12/29/16 at 09:00 HUMA MAHMOOD MD Dec 28, 2016 16:14
[2016-12-28] MEDS: MONTELUKAST 10 MG TAB PO SCH (21:11)
[2016-12-28] MEDS: SENNA/DOCUSATE NA (8.6MG/50MG) TAB PO SCH (21:11)
[2016-12-29 02:00] VITALS: BP 99/56; RESP 18
[2016-12-29] MEDS: HYDROCODONE/APAP (5/325) TAB PO PRN ×3 (02:09→23:23)
[2016-12-29] MEDS ORDERED: MAGNESIUM CITRATE 300 ML BTL PO ONE (02:30)
[2016-12-29] MEDS: DEXTROSE 5%-0.45% NACL 1,000 ML IV SCH (04:35)
[2016-12-29] MEDS: CEFAZOLIN 1 GM/50 ML (PMX) 50 ML IVPB SCH ×3 (05:52→21:04)
[2016-12-29 06:58] LABS: BASOPHILS % 0.1 % (0.0-2.0); HEMATOCRIT 23.6 % (37.0-47.0); LYMPHOCYTES # 1.9 10^3/ul (0.8-2.9); LYMPHOCYTES % 17.9 % (15.0-51.0); MEAN CORPUSCULAR HGB CONC 33.9 g/dl (32.0-37.0); MEAN CORPUSCULAR VOLUME 91.5 fl (82.0-101.0); MEAN PLATELET VOLUME 10.6 fl (7.4-10.4); MONOCYTE # 1.3 10^3/ul (0.3-0.9); MONOCYTES % 12.6 % (0.0-11.0); PLATELET COUNT 141 10^3/UL (140-415); RED BLOOD COUNT 2.58 10^6/ul (4.20-5.40); RED CELL DISTRIBUTION WIDTH 15.8 % (11.5-14.5); WHITE BLOOD COUNT 10.3 10^3/ul (4.8-10.8)
[2016-12-29 07:12] LABS: INR 1.12; PARTIAL THROMBOPLASTIN TIME 22.3 Sec (25.0-35.0); PROTIME 14.4 Sec (12.2-14.2); PT RATIO 1.1
[2016-12-29 07:14] VITALS: BP 104/51; RESP 18
[2016-12-29 07:18] LABS: ALBUMIN 2.5 g/dl (3.3-4.9); BILIRUBIN,INDIRECT 0.5 mg/dl (0-1.1); BILIRUBIN,TOTAL 0.5 mg/dl (0.2-1.3); CALCIUM 7.8 mg/dl (8.4-10.2); CREATININE 0.81 mg/dl (0.44-1.00); POTASSIUM 4.5 mmol/L (3.5-5.1)
[2016-12-29] MEDS: SENNA/DOCUSATE NA (8.6MG/50MG) TAB PO SCH ×2 (09:00→21:05)
[2016-12-29] MEDS: ASPIRIN (EC) 325 MG TAB PO SCH ×2 (09:00→21:05)
[2016-12-29] MEDS ORDERED: ASPIRIN (EC) 325 MG TAB PO SCH (09:00)
--- NOTE | 2016-12-29 11:07 | PN ---
Date/Time of Note Date/Time of Note DATE: 12/29/16 TIME: 11:00 Assessment/Plan VTE Prophylaxis VTE Prophylaxis Intervention: SCD's, other (ASA 325 mg ) Lines/Catheters IV Catheter Type (from Nrs): Peripheral IV Urinary Cath still in place: Yes Reason Cath still needed: other (indicate) (Post op for hip surgery ) Assessment/Plan Assessment/Plan 1. S/p Mechanical Fall 2. Left hip fracture, Intertrochanteric, Comminuted s/p ORIF on 12/28/16 3. Intractable left hip pain 4. Post op anemia Hb down to 7.1- s/p 2 units PRBC transfusion Plan: doing well, Hip site dressing is soaked with blood, nurse advised to change dressing and inform to Orthopedic surgery s/p 2 units PRBC transfusion for post op anemia - Now Hb 8.0 today DVT prophylaxis with ASA 325 mg BID Orthopedic has been following on patient acute rehab evaluation, if declined then SNF placement Subjective 24 Hr Interval Summary Free Text/Dictation s/p ORIF, received PRBC yesterday, today BP stable, pt feel better, had a PT today AM Exam/Review of Systems Vital Signs Vitals Vital Signs Date Time Temp Pulse Resp B/P Pulse Ox O2 Delivery O2 Flow Rate FiO2 12/29/16 07:14 98.3 94 18 104/51 92 12/28/16 20:00 Nasal Cannula 2.0 Intake and Output 12/28/16 12/28/16 12/29/16 15:00 23:00 07:00 Intake Total 1350 ml 280 ml 170 ml Output Total 800 ml Balance 550 ml 280 ml 170 ml Exam WEll appearing elderly femal resting comfortably in NAD RRR, no m/r/g Ctab abd soft nt nd left hip dressing present No edema, + dominique catheter Results Result Diagram: 12/29/16 0608 12/29/16 0608 Results 24 hrs Laboratory Tests Test 12/28/16 13:15 12/29/16 05:57 12/29/16 06:08 White Blood Count 13.7 #H 10.3 # Red Blood Count 2.11 #L 2.58 #L Hemoglobin 7.1 #L 8.0 L Hematocrit 20.9 #L 23.6 L Mean Corpuscular Volume 99.1 91.5 Mean Corpuscular Hemoglobin 33.6 H 31.0 Mean Corpuscular Hemoglobin Concent 34.0 33.9 Red Cell Distribution Width 13.1 15.8 #H Platelet Count 176 141 Mean Platelet Volume 9.8 10.6 H Neutrophils % 86.7 H 69.0 Lymphocytes % 6.6 L 17.9 Monocytes % 6.1 12.6 H Eosinophils % 0.0 0.0 Basophils % 0.1 0.1 Nucleated Red Blood Cells % 0.0 0.0 Neutrophils # (Manual) 11.9 H 7.1 Lymphocytes # 0.9 1.9 Monocytes # 0.8 1.3 H Eosinophils # 0.0 0.0 Basophils # 0.0 0.0 Nucleated Red Blood Cells # 0.0 0.0 Sodium Level 136 130 L Potassium Level 4.6 4.5 Chloride Level 103 99 Carbon Dioxide Level 19 L 24 Anion Gap 19 #H 12 # Blood Urea Nitrogen 15 18 Creatinine 0.81 0.81 Glucose Level 202 128 # Calcium Level 7.5 L 7.8 L Lab Scanned Report BLOOD TRANSFUSION Prothrombin Time 14.4 H Prothrombin Time Ratio 1.1 INR International Normalized Ratio 1.12 Activated Partial Thromboplast Time 22.3 L Total Bilirubin 0.5 Direct Bilirubin 0.00 Indirect Bilirubin 0.5 Aspartate Amino Transf (AST/SGOT) 30 Alanine Aminotransferase (ALT/SGPT) 23 Alkaline Phosphatase 44 Total Protein 5.0 #L Albumin 2.5 L Globulin 2.50 Albumin/Globulin Ratio 1.00 Medications Medications Current Medications Acetaminophen/ Hydrocodone Bitart ([place] (5/325)) 2 tab Q6H PRN PO SEVERE PAIN LEVEL 7-10 Last administered on 12/29/16 09:00; Admin Dose 2 TAB; Start at 11:30 Montelukast Sodium 10 mg 10 mg QHS PO Last administered on 12/28/16 21:11; Admin Dose 10 MG; Start 12/26/16 at 21:00 Dextrose/Sodium Chloride 1,000 ml @ 70 mls/hr [id number] IV Last administered on 12/28/16 14:50; Admin Dose 70 MLS/HR; Start 12/27/16 at 23:59 Cefazolin Sodium (Ancef 1 Gm/50 ml (Pmx)) 50 ml @ 100 mls/hr Q8 IVPB Last administered on 12/29/16 05:52; Admin Dose 100 MLS/HR; Start 12/28/16 at 14:00 Senna/Docusate Sodium (Senokot-S) 1 tab BID PO Last administered on 12/29/16 09:00; Admin Dose 1 TAB; Start 12/28/16 at 21:00 Aspirin (Ecotrin) 325 mg BID PO Last administered on 12/29/16 09:00; Admin Dose 325 MG; Start 12/29/16 at 09:00 JEN LIANG MD Dec 29, 2016 11:07
--- NOTE | 2016-12-29 12:22 | PN ---
Date/Time of Note Date/Time of Note DATE: 12/29/16 TIME: 12:20 Assessment/Plan Lines/Catheters IV Catheter Type (from [facility]): Peripheral IV Pereira in Place (from [facility]): Yes Assessment/Plan Chief Complaint/Hosp Course Patient has bilateral SCD, and taking ASA 325mg BID. Patient will work with physical therapy. She will require home care. I will consult [facility]. Patient will be discharged to [facility] for acute rehab. Problems: Subjective 24 Hr Interval Summary Patient doing well. Has not worked with physical therapy. Denies fevers or chills. Constitutional: no complaints Exam/Review of Systems Vital Signs Vitals Vital Signs Date Time Temp Pulse Resp B/P Pulse Ox O2 Delivery O2 Flow Rate FiO2 12/29/16 07:14 98.3 94 18 104/51 92 12/28/16 20:00 Nasal Cannula 2.0 Intake and Output 12/28/16 12/28/16 12/29/16 15:00 23:00 07:00 Intake Total 1350 ml 280 ml 170 ml Output Total 800 ml Balance 550 ml 280 ml 170 ml Results Result Diagram: 12/29/16 0608 12/29/16 0608 BRANDIE ORO MD Dec 29, 2016 12:22
[2016-12-29 13:59] VITALS: BP 83/53; RESP 18
[2016-12-29 14:32] VITALS: BP 105/53; PULSE 100; RESP 20
[2016-12-29 20:00] VITALS: BP 105/51; RESP 20
[2016-12-29] MEDS: MONTELUKAST 10 MG TAB PO SCH (21:05)
[2016-12-30 02:00] VITALS: BP 95/48; RESP 20
[2016-12-30 05:36] LABS: BASOPHILS % 0.1 % (0.0-2.0); EOSINOPHILS % 0.1 % (0.0-7.0); LYMPHOCYTES # 1.9 10^3/ul (0.8-2.9); LYMPHOCYTES % 21.3 % (15.0-51.0); MEAN CORPUSCULAR HEMOGLOBIN 31.3 pg (29.0-33.0); MEAN CORPUSCULAR HGB CONC 33.3 g/dl (32.0-37.0); MEAN CORPUSCULAR VOLUME 93.8 fl (82.0-101.0); MEAN PLATELET VOLUME 9.7 fl (7.4-10.4); MONOCYTE # 1.1 10^3/ul (0.3-0.9); MONOCYTES % 12.1 % (0.0-11.0); NEUTROPHILS % 65.8 % (39.0-77.0); PLATELET COUNT 150 10^3/UL (140-415); RED BLOOD COUNT 2.24 10^6/ul (4.20-5.40); RED CELL DISTRIBUTION WIDTH 15.9 % (11.5-14.5); WHITE BLOOD COUNT 8.9 10^3/ul (4.8-10.8)
[2016-12-30] MEDS: CEFAZOLIN 1 GM/50 ML (PMX) 50 ML IVPB SCH ×3 (05:44→21:21)
[2016-12-30 05:50] LABS: INR 1.11; PROTIME 14.3 Sec (12.2-14.2); PT RATIO 1.1
[2016-12-30 05:51] LABS: PARTIAL THROMBOPLASTIN TIME 28.7 Sec (25.0-35.0)
[2016-12-30 06:51] LABS: ALBUMIN 2.6 g/dl (3.3-4.9); ALBUMIN/GLOBULIN RATIO 1.04; BILIRUBIN,INDIRECT 0.4 mg/dl (0-1.1); BILIRUBIN,TOTAL 0.4 mg/dl (0.2-1.3); CALCIUM 7.7 mg/dl (8.4-10.2); CREATININE 0.75 mg/dl (0.44-1.00); POTASSIUM 4.7 mmol/L (3.5-5.1); TOTAL PROTEIN 5.1 g/dl (6.1-8.1)
[2016-12-30 07:45] VITALS: BP 106/51; RESP 18
[2016-12-30] MEDS: SENNA/DOCUSATE NA (8.6MG/50MG) TAB PO SCH ×2 (09:01→20:01)
[2016-12-30] MEDS: ASPIRIN (EC) 325 MG TAB PO SCH (09:01)
[2016-12-30] MEDS: HYDROCODONE/APAP (5/325) TAB PO PRN ×2 (11:05→20:01)
[2016-12-30] MEDS ORDERED: SOD CHLORIDE 0.9% 250 ML IV* ONE (13:29)
[2016-12-30] MEDS: MAGNESIUM HYDROXIDE 30ML CUP PO SCH ×2 (13:30→20:01)
[2016-12-30 14:00] VITALS: BP 103/58; PULSE 85; RESP 20
[2016-12-30] MEDS: MONTELUKAST 10 MG TAB PO SCH (20:01)
[2016-12-30 20:04] VITALS: BP 108/55; PULSE 82; RESP 18
[2016-12-31 02:00] VITALS: BP 118/56; RESP 20
[2016-12-31] MEDS: CEFAZOLIN 1 GM/50 ML (PMX) 50 ML IVPB SCH ×2 (05:23→13:53)
[2016-12-31 05:57] LABS: BASOPHILS % 0.4 % (0.0-2.0); EOSINOPHILS # 0.1 10^3/ul (0.0-0.5); HEMATOCRIT 24.4 % (37.0-47.0); HEMOGLOBIN 8.3 g/dl (12.0-16.0); LYMPHOCYTES # 0.7 10^3/ul (0.8-2.9); MEAN CORPUSCULAR HEMOGLOBIN 31.1 pg (29.0-33.0); MEAN CORPUSCULAR VOLUME 91.4 fl (82.0-101.0); MEAN PLATELET VOLUME 9.9 fl (7.4-10.4); MONOCYTE # 0.5 10^3/ul (0.3-0.9); MONOCYTES % 10.9 % (0.0-11.0); NEUTROPHILS % 72.1 % (39.0-77.0); NUCLEATED RED BLOOD CELLS # 0.1 10^3/ul (0.0-0.0); NUCLEATED RED BLOOD CELLS% 1.2 /100WBC (0.0-0.0); RED BLOOD COUNT 2.67 10^6/ul (4.20-5.40); RED CELL DISTRIBUTION WIDTH 16.4 % (11.5-14.5)
[2016-12-31 05:59] LABS: PLATELET COUNT 243 10^3/UL (140-415); POSITIVE DIFF @See below; WHITE BLOOD COUNT 4.9 10^3/ul (4.8-10.8)
[2016-12-31 06:04] LABS: INR 1.16; PARTIAL THROMBOPLASTIN TIME 30.2 Sec (25.0-35.0); PROTIME 14.8 Sec (12.2-14.2); PT RATIO 1.2
[2016-12-31 06:55] LABS: THYROID STIMULATING HORMONE 4.46 MIU/L (0.465-4.680)
[2016-12-31 07:45] VITALS: BP 94/50; RESP 20
[2016-12-31] MEDS: MAGNESIUM HYDROXIDE 30ML CUP PO SCH (08:15)
[2016-12-31] MEDS: SENNA/DOCUSATE NA (8.6MG/50MG) TAB PO SCH (08:15)
[2016-12-31] MEDS: HYDROCODONE/APAP (5/325) TAB PO PRN ×2 (08:16→18:01)
[2016-12-31] MEDS ORDERED: CALCIUM/VITAMIN D (500/200) TAB PO SCH (09:00)
[2016-12-31] MEDS ORDERED: ASPIRIN (EC) 325 MG TAB PO SCH (09:00)
--- NOTE | 2016-12-31 10:09 | PDOCDIS ---
Discharge Instructions DIAGNOSIS Discharge Diagnosis hip fracture CONDITION Patient Condition: Stable HOME CARE INSTRUCTIONS: Diet Instructions: Regular ACTIVITY: Activity Restrictions: Slowly Increase Activity Do not Drive FOLLOW UP/APPOINTMENTS Follow-up Plan KATE Tripp MD Dec 31, 2016 10:09
[2016-12-31] MEDS ORDERED: ASPI325T32 PO (10:10)
[2016-12-31] MEDS ORDERED: CALC-277 PO (10:10)
[2016-12-31] MEDS ORDERED: HYDR-3498 PO (10:10)
[2016-12-31] MEDS ORDERED: SENN-88 PO (10:10)
--- NOTE | 2016-12-31 10:41 | DS ---
Date/Time of Note Date/Time of Note DATE: 12/31/16 TIME: 10:38 Discharge Summary Admission/Discharge Info Admit Date/Time Dec 26, 2016 at 09:45 Discharge Date/Time Discharge Diagnosis hip fracture Patient Condition: Stable Consults Dr Vandana Martin; ortho Procedures 1. Left hip open reduction, internal fixation with cephalomedullary nailing. Hx of Present Illness 81 yo female wihtout significant PMH who presents after falling in her garden. [place] immediate pain in hip and cracking. Laid in garden for an hour before found. Brought to ED and found to have hip fracture. Very clear that she tripped over a small gate in her garden, this was not syncope. Currently feels well without pain at rest Denies h/o angina or CHF. Easily able to climb a flight of stairs without symptoms prior to this. ADMITTED, underwent Left hip open reduction, internal fixation with cephalomedullary nailing. stable, going to ac rehab. has some oozing from wound. will restart asa for dvt prophylaxis once bleeding is stable. Hospital Course ASA 325mg BID for dvt prophylaxis. For physical therapy: to acute rehab. Home Meds Active Scripts Sennosides/Docusate Sodium (Senna Plus Tablet) 1 Each Tablet, 1 TAB PO BID for 7 Days, TAB Prov:KATE SEN MD 12/31/16 Calcium Carbonate/Vitamin D3 (OYSTER SHELL 500 MG + VIT D TB) 1 Each Tablet, 1 TAB PO DAILY for 30 Days, TAB Prov:KATE SEN MD 12/31/16 Hydrocodone Bit-Acetaminophen (Hydrocodone Bit-APAP) 5-325MG Tablet, 2 TAB PO Q6H Y for SEVERE PAIN LEVEL 7-10 for 14 Days, TAB Prov:KATE SEN MD 12/31/16 Aspirin (Aspir-Patti) 325 Mg Tablet., 325 MG PO BID for 30 Days start 01/01 Prov:KATE SEN MD 12/31/16 Reported Medications Simvastatin* (Zocor*) 40 Mg Tablet, 40 MG PO QHS, #30 TAB 12/26/16 Montelukast Sodium* (Singulair*) 10 Mg Tablet, 10 MG PO QHS, #30 TAB 12/26/16 Discontinued Reported Medications Aspirin (Low Dose Aspirin) 81 Mg Tablet., 81 MG PO DAILY, #30 TAB 12/26/16 Aspirin Ec (Aspir 81) 81 Mg Tablet.dr, 81 MG PO MWF 11/07/11 Multivitamins W-Minerals/Lut (Centrum Silver Tablet) 1 Tab Tablet, 1 TAB PO DAILY 11/07/11 Simvastatin (Simvastatin) 40 Mg Tablet, 40 MG PO HS 11/07/11 Montelukast Sodium* (Singulair*) 10 Mg Tablet, 10 MG PO DAILY 11/07/11 Nebivolol Hcl* (Bystolic*) 10 Mg Tablet, 10 MG PO DAILY 11/07/11 Primary Care Provider Not On Staff Doctor Pending Labs Laboratory Tests Test 12/31/16 05:14 White Blood Count 4.910^3/ul (4.8-10.8) Red Blood Count 2.6710^6/ul (4.20-5.40) Hemoglobin 8.3g/dl (12.0-16.0) Hematocrit 24.4% (37.0-47.0) Mean Corpuscular Volume 91.4fl (82.0-101.0) Mean Corpuscular Hemoglobin 31.1pg (29.0-33.0) Mean Corpuscular Hemoglobin Concent 34.0g/dl (32.0-37.0) Red Cell Distribution Width 16.4% (11.5-14.5) Platelet Count 74442^3/UL (140-415) Mean Platelet Volume 9.9fl (7.4-10.4) Neutrophils % 72.1% (39.0-77.0) Lymphocytes % 15.0% (15.0-51.0) Monocytes % 10.9% (0.0-11.0) Eosinophils % 1.0% (0.0-7.0) Basophils % 0.4% (0.0-2.0) Nucleated Red Blood Cells % 1.2/100WBC (0.0-0.0) Neutrophils # (Manual) 3.510^3/ul (1.7-7.5) Lymphocytes # 0.710^3/ul (0.8-2.9) Monocytes # 0.510^3/ul (0.3-0.9) Eosinophils # 0.110^3/ul (0.0-0.5) Basophils # 0.010^3/ul (0.0-0.1) Nucleated Red Blood Cells # 0.110^3/ul (0.0-0.0) Prothrombin Time 14.8Sec (12.2-14.2) Prothrombin Time Ratio 1.2 INR International Normalized Ratio 1.16 Activated Partial Thromboplast Time 30.2Sec (25.0-35.0) Sodium Level Pending Potassium Level Pending Chloride Level Pending Carbon Dioxide Level Pending Anion Gap Pending Blood Urea Nitrogen Pending Creatinine Pending Glucose Level Pending Calcium Level Pending Phosphorus Level Pending Magnesium Level Pending Total Bilirubin Pending Direct Bilirubin Pending Indirect Bilirubin Pending Aspartate Amino Transf (AST/SGOT) Pending Alanine Aminotransferase (ALT/SGPT) Pending Alkaline Phosphatase Pending Total Protein Pending Albumin Pending Globulin Pending Albumin/Globulin Ratio Pending Thyroid Stimulating Hormone (TSH) 4.460MIU/L (0.465-4.680) KATE SEN MD Dec 31, 2016 10:41
[2016-12-31 10:50] LABS: ALBUMIN 2.5 g/dl (3.3-4.9); ALBUMIN/GLOBULIN RATIO 0.92; BILIRUBIN,INDIRECT 0.6 mg/dl (0-1.1); BILIRUBIN,TOTAL 0.6 mg/dl (0.2-1.3); CALCIUM 7.8 mg/dl (8.4-10.2); CREATININE 0.66 mg/dl (0.44-1.00); MAGNESIUM 2.5 mg/dl (1.7-2.5); PHOSPHORUS 2.6 mg/dl (2.5-4.9); POTASSIUM 4.8 mmol/L (3.5-5.1); TOTAL PROTEIN 5.2 g/dl (6.1-8.1)
[2016-12-31 13:13] VITALS: BP 89/49; RESP 18
[2016-12-31] MEDS ORDERED: SOD CHLORIDE 0.9% 500 ML IV STA (13:33)
[2016-12-31 15:45] VITALS: BP 116/63; PULSE 79; RESP 20
== END 2016-12-31 18:30 | DRG 481 ==
LOC: E/R 08:05 → MS2 09:45
PROVIDERS: ADMIT Internal Medicine; ATTEND Internal Medicine
PROC: 30233N1 Transfusion of Nonautologous Red Blood Cells into Peripheral Vein, Percutaneous Approach (ICD-10-PCS; 2016-12-28)
PROC: 0QS704Z Reposition Left Upper Femur with Internal Fixation Device, Open Approach (ICD-10-PCS; principal; 2016-12-28 08:00)
PROC: 30233N1 Transfusion of Nonautologous Red Blood Cells into Peripheral Vein, Percutaneous Approach (ICD-10-PCS; 2016-12-30)
DX: S72.142A Displaced intertrochanteric fracture of left femur, initial encounter for closed fracture (principal); D62 Acute posthemorrhagic anemia; W01.0XXA Fall on same level from slipping, tripping and stumbling without subsequent striking against object, initial encounter; Y93.01 Activity, walking, marching and hiking; Y92.014 Private driveway to single-family (private) house as the place of occurrence of the external cause; Y99.8 Other external cause status; E78.5 Hyperlipidemia, unspecified; J45.909 Unspecified asthma, uncomplicated; I25.10 Atherosclerotic heart disease of native coronary artery without angina pectoris
CPT/HCPCS: 36415; 36430; 71010; 73030; 73510; 73530; 73550; 80048; 80053; 82306; 82550; 82553; 83735; 84100; 84443; 84484; 85025; 85610; 85730; 86644; 86850; 86900; 86901; 86920; 93005; 96374; 96375; 97110; 97162; 97530; C1713; J0131; J0690; J1100; J1170; J1650; J2250; J2270; J2370; J2405; J2765; J2795; J3010; J7030; J7040; J7042; P9016; P9045

== ENCOUNTER 2016-12-31 18:00 | Inpatient (IN) | payer MEDICARE ==
[~2016-12-31] VITALS: Ht 165.1 cm; Wt 90.6 kg
[~2016-12-31 18:00] MED LIST changes: -ASPI-535 PO; +ASPI325T32 PO; +CALC-277 PO; +HYDR-3498 PO; -MULT-754 PO; -NEBI10TA2 PO; +SENN-88 PO; +SIMV40TA2 PO; -SIMV40TA3 PO
[2016-12-31] MEDS ORDERED: MAGNESIUM HYDROXIDE 30ML CUP PO PRN (19:30)
[2016-12-31] MEDS ORDERED: ACETAMINOPHEN 325 MG TAB PO PRN (19:30)
[2016-12-31] MEDS ORDERED: LACTULOSE 30ML CUP PO PRN (19:30)
[2016-12-31] MEDS ORDERED: BISACODYL 10 MG SUPP PR PRN (19:30)
[2016-12-31 19:37] VITALS: Ht 165.1 cm; Wt 90.6 kg
[2016-12-31 20:00] VITALS: BP 97/55; RESP 20
[2016-12-31] MEDS: ASPIRIN (EC) 325 MG TAB PO SCH (20:28)
[2016-12-31] MEDS: ATORVASTATIN 20 MG TAB PO SCH (20:28)
[2016-12-31] MEDS: SENNA/DOCUSATE NA (8.6MG/50MG) TAB PO SCH (20:34)
[2016-12-31] MEDS: DOCUSATE SODIUM 100 MG CAP PO SCH (20:34)
[2016-12-31] MEDS ORDERED: MONTELUKAST 10 MG TAB PO SCH (21:00)
[2017-01-01 00:37] LABS: ADD UMIC YES; UR ASCORBIC ACID NEGATIVE (NEGATIVE); UR BILIRUBIN (Dip) NEGATIVE (NEGATIVE); UR BLOOD (Dip) 1+ mg/dL (NEGATIVE); UR BUDDING YEAST MODERATE /HPF (NONE SEEN); UR CLARITY CLEAR (CLEAR); UR COLOR AMBER (YELLOW); UR GLUCOSE (Dip) NEGATIVE (NEGATIVE); UR KETONES (Dip) NEGATIVE (NEGATIVE); UR LEUKOCYTE ESTERASE (Dip) NEGATIVE Leu/ul (NEGATIVE); UR MUCUS FEW /HPF (NONE SEEN); UR NITRITE (Dip) NEGATIVE (NEGATIVE); UR RBC 13 /HPF (0-5); UR SPECIFIC GRAVITY (Dip) 1.026 (1.003-1.030); UR TOTAL PROTEIN (Dip) 1+ mg/dl (NEGATIVE); UR UROBILINOGEN (Dip) NEGATIVE (NEGATIVE)
[2017-01-01 02:00] VITALS: BP 110/53; RESP 18
[2017-01-01 07:18] LABS: BASOPHILS % 0.4 % (0.0-2.0); EOSINOPHILS # 0.1 10^3/ul (0.0-0.5); EOSINOPHILS % 1.5 % (0.0-7.0); HEMATOCRIT 25.5 % (37.0-47.0); HEMOGLOBIN 8.5 g/dl (12.0-16.0); LYMPHOCYTES # 1.3 10^3/ul (0.8-2.9); LYMPHOCYTES % 17.8 % (15.0-51.0); MEAN CORPUSCULAR HEMOGLOBIN 30.9 pg (29.0-33.0); MEAN CORPUSCULAR HGB CONC 33.3 g/dl (32.0-37.0); MEAN CORPUSCULAR VOLUME 92.7 fl (82.0-101.0); MEAN PLATELET VOLUME 9.6 fl (7.4-10.4); MONOCYTE # 0.8 10^3/ul (0.3-0.9); MONOCYTES % 11.4 % (0.0-11.0); NEUTROPHILS % 68.4 % (39.0-77.0); PLATELET COUNT 196 10^3/UL (140-415); RED BLOOD COUNT 2.75 10^6/ul (4.20-5.40); RED CELL DISTRIBUTION WIDTH 16.1 % (11.5-14.5); WHITE BLOOD COUNT 7.3 10^3/ul (4.8-10.8)
[2017-01-01 07:53] VITALS: BP 94/55; RESP 18
[2017-01-01 08:01] LABS: ALBUMIN 2.4 g/dl (3.3-4.9); ALBUMIN/GLOBULIN RATIO 0.88; BILIRUBIN,INDIRECT 0.6 mg/dl (0-1.1); BILIRUBIN,TOTAL 0.6 mg/dl (0.2-1.3); CALCIUM 7.9 mg/dl (8.4-10.2); CREATININE 0.63 mg/dl (0.44-1.00); POTASSIUM 4.7 mmol/L (3.5-5.1); TOTAL PROTEIN 5.1 g/dl (6.1-8.1)
[2017-01-01] MEDS: CALCIUM/VITAMIN D (500/200) TAB PO SCH (08:15)
[2017-01-01] MEDS: DOCUSATE SODIUM 100 MG CAP PO SCH ×2 (08:16→21:00)
[2017-01-01] MEDS: ASPIRIN (EC) 325 MG TAB PO SCH ×2 (08:16→21:25)
[2017-01-01] MEDS: HYDROCODONE/APAP (5/325) TAB PO PRN ×2 (08:16→15:16)
[2017-01-01] MEDS: MONTELUKAST 10 MG TAB PO SCH ×2 (08:17→12:27)
[2017-01-01] MEDS: SENNA/DOCUSATE NA (8.6MG/50MG) TAB PO SCH ×2 (08:17→21:00)
--- NOTE | 2017-01-01 13:06 | CONS ---
DATE OF ADMISSION: 12/31/2016 DATE OF CONSULTATION: 01/01/2017 REHABILITATION POST ADMISSION PHYSICIAN EVALUATION REHABILITATION IMPAIRMENT CATEGORY: Left intertrochanteric hip fracture status post ORIF with cephalomedullary nailing. ACTIVE COMORBIDITIES: 1. Acute left shoulder tendinitis, status post fall. 2. Acute pain syndrome. 3. Anemia. 4. Impairments in self-care and mobility. HISTORY OF PRESENT ILLNESS: The patient is a very pleasant, 81- year-old female, who was gardening at home and sustained a mechanical fall with resultant left intertrochanteric hip fracture. The patient underwent left hip ORIF with postoperative course notable for anemia requiring transfusion. In addition, due to significant impairments in self-care and mobility, as compared to baseline. The patient was also noted to have left shoulder pain presumed secondary to traumatic fall with tendinitis. The patient has now been cleared to transfer to the rehabilitation unit for comprehensive interdisciplinary rehab care. FUNCTIONAL HISTORY: Prior to recent events, she was independent in self-care tasks and mobility. Currently, patient requires maximal assist for self-care mobility tasks. SOCIAL HISTORY: The patient lives at home with her and hopes to return home upon discharge. PAST MEDICAL HISTORY: COPD. CURRENT MEDICATION: 1. Ecotrin 325 p.o. b.i.d. 2. Oyster shell calcium 1 tab p.o. daily. 3. Senokot b.i.d. 4. Free Soil p.r.n. 5. Singulair 10 mg p.o. at bedtime. 6. Zocor 40 mg p.o. daily. ALLERGIES: PATIENT WITH NO KNOWN DRUG ALLERGIES. PHYSICAL EXAMINATION: VITAL SIGNS: Patient is currently afebrile with stable vital signs. HEENT: The extraocular motions are intact. Oropharynx is clear. NECK: Supple. LUNGS: Clear anteriorly. HEART: S1, S2. ABDOMEN: Soft, nontender. Positive bowel sounds. NEUROLOGIC: She is awake and alert. She is oriented to person and hospital and date. She will follow simple one-step commands. She demonstrates good strength in the right upper extremity. She has decreased range and pain with left shoulder forward flexion and abduction. She has good strength in the right lower extremity. Dorsiflexion and plantar flexion intact on the left. PLAN: The patient has been admitted for comprehensive interdisciplinary acute rehab and is anticipated to tolerate 3 hours of daily therapy in divided doses for at least 5/7 days a week. The treatment plan will include: 1. Physical therapy to focus on bed mobility, transfers and household ambulation with goal of having patient reach a standby assist level. 2. Occupational therapy to focus on hygiene, grooming, dressing, bathing and toileting activities with goal of having patient reach a standby assist level. 3. Rehabilitation nursing for carry over of therapeutic interventions, the goal of continent to bowel and bladder, and the goal of pain adequately managed on oral medications. Rehabilitation barrier: pain. Intervention for barrier comprehensive interdisciplinary approach. Estimated length of stay is 12 days. DISPOSITION GOAL: Home. I acknowledge I performed a full physical examination on this patient within 24 hours of admission to the rehabilitation unit, and believe the patient is a good candidate for comprehensive interdisciplinary rehab care and is anticipated to make reasonable goals in a reasonable period of time as outlined above. Dictated By: Pam Rios MD /[email or web address] /Document#: [id number] GRISELDA
--- NOTE | 2017-01-01 15:20 | CONS ---
Date/Time of Note Date/Time of Note DATE: 01/01/17 TIME: 15:12 Assessment/Plan Assessment/Plan Chief Complaint/Hosp Course This is a 81-year-old female who sustained mechanical fall with resultant left hip fracture who underwent left hip ORIF and is being admitted to acute rehabilitation unit for further comprehensive interdisciplinary rehabilitation. 1. Hip fracture: s/p ORIF on 12/28/2016. -Continue pain control. Outpatient follow-up with orthopedics in 2 weeks after discharge. -Continue multidisciplinary physical therapy and rehabilitation 2. Dyslipidemia. On statin. We will obtain a lipid panel. Will adjust dose of statin as patient with elevated liver enzymes. 3. Transaminase elevation. Patient denies any RUQ symptoms. -We will obtain abdominal ultrasound. Will consider adjusting dose of statin. Will repeat LFTs in 2 days. 4. COPD. Stable. -Continue home medications. 5. Normocytic anemia, likely chronic. H&H stable. Will continue to monitor. Also obtain iron panel and treat accordingly. Aspirin for DVT prophylaxis per surgery recommendation. We will continue to see patient along with you. Approximately 60 minutes was spent on this consultation. Case discussed with Problems: Consultation Date/Type/Reason Admit Date/Time Dec 31, 2016 at 18:45 Reason for Consultation Internal medicine Hx of Present Illness This is a 81-year-old female with a past medical history of COPD, who was admitted at [facility] after patient had mechanical fall with resultant left intertrochanteric hip fracture for which she underwent left hip ORIF on 12/28/2016. Postoperatively, patient had anemia requiring transfusion. Patient was evaluated by physical therapy and she continued to have significant self-care and mobility impairment requiring further comprehensive interdisciplinary rehabilitation. Patient was accepted to acute rehabilitation unit. Currently patient denies any chest pain, shortness of breath, loss of consciousness, dizziness, nausea, vomiting, abdominal pain or other constitutional symptoms. She labs unremarkable except for mildly elevated AST, ALT and alkaline phosphatase. Again, patient does not have any RUQ symptoms. A 12 point review of system was assessed and is negative other than what is mentioned in HPI. Past Medical History See HPI Past Surgical History See HPI Past Surgical Hx: noncontributory Social History Patient denied any history of smoking, alcohol or illicit drug use. Smoking Status: Never smoker Exam/Review of Systems Vital Signs Vitals Vital Signs Date Time Temp Pulse Resp B/P Pulse Ox O2 Delivery O2 Flow Rate FiO2 01/01/17 07:53 98.2 86 18 94/55 97 Intake and Output 12/31/16 12/31/16 01/01/17 15:00 23:00 07:00 Intake Total 120 ml Balance 120 ml Exam General: Obese female, not in any acute distress . HEENT: Normocephalic, Atraumatic, No laceration or hematoma; Eyes: PEERL, Conjunctiva clear, Anicteric sclera Neck: Supple without any lymphadenopathy, nontender, no JVD, no carotid bruits, trachea midline, no thyromegaly Cardiac: S1, S2 auscultated, regular rhythm and rate, no mumurs or gallop Pulmonary: Normal respiratory effort. Chest clear to auscultation bilaterally, no adventitious breath sounds GI: Abdomen normal to inspection. Soft, non tender, non- distended, no masses, no rebound tenderness or guarding. Bowel sounds active on all four quadrants Genitourinary: Deferred Extremities: Left hip surgical dressing with drainage circled. No cyanosis, clubbing, or edema. Pulses [2+] bilaterally. Full ROM on all four extremities. No focal weakness appreciated. Neurologic: Alert to person, place, time, and situation. Affect appropriate, intact sensation. Skin: Clean,dry, and intact. No ecchymosis, no rashes, or lesions Results Result Diagram: 01/01/1761801/01/1719 Results 24 hrs Laboratory Tests Test 12/31/16 20:18 01/01/17 06:19 Urine Color ERIC Urine Clarity CLEAR Urine pH 5.0 Urine Specific [place] 1.026 Urine Ketones NEGATIVE Urine Nitrite NEGATIVE Urine Bilirubin NEGATIVE Urine Urobilinogen NEGATIVE Urine Leukocyte Esterase NEGATIVE Urine Microscopic RBC 13 H Urine Microscopic WBC 3 Urine Mucus FEW A Urine Yeast (Budding) MODERATE A Urine Hemoglobin 1+ H Urine Glucose NEGATIVE Urine Total Protein 1+ H White Blood Count 7.3 # Red Blood Count 2.75 L Hemoglobin 8.5 L Hematocrit 25.5 L Mean Corpuscular Volume 92.7 Mean Corpuscular Hemoglobin 30.9 Mean Corpuscular Hemoglobin Concent 33.3 Red Cell Distribution Width 16.1 H Platelet Count 196 Mean Platelet Volume 9.6 Neutrophils % 68.4 Lymphocytes % 17.8 Monocytes % 11.4 H Eosinophils % 1.5 Basophils % 0.4 Nucleated Red Blood Cells % 0.0 Neutrophils # (Manual) 5.0 Lymphocytes # 1.3 Monocytes # 0.8 Eosinophils # 0.1 Basophils # 0.0 Nucleated Red Blood Cells # 0.0 Sodium Level 135 Potassium Level 4.7 Chloride Level 99 Carbon Dioxide Level 29 Anion Gap 12 Blood Urea Nitrogen 15 Creatinine 0.63 Glucose Level 94 Calcium Level 7.9 L Total Bilirubin 0.6 Direct Bilirubin 0.00 Indirect Bilirubin 0.6 Aspartate Amino Transf (AST/SGOT) 75 H Alanine Aminotransferase (ALT/SGPT) 72 H Alkaline Phosphatase 146 #H Total Protein 5.1 L Albumin 2.4 L Globulin 2.70 Albumin/Globulin Ratio 0.88 Medications Medications Current Medications Aspirin (Ecotrin) 325 mg BID PO Last administered on 01/01/17 08:16; Admin Dose 325 MG; Start 12/31/16 at 21:00; Stop 01/30/17 at 09:01 Calcium/Vitamin D (Oyster Shell/ Vit-D (500/200)) 1 tab DAILY PO Last administered on 01/01/17 08:15; Admin Dose 1 TAB; Start 01/01/17 at 09:00; Stop 01/30/17 at 09:01 Senna/Docusate Sodium (Senokot-S) 1 tab BID PO Last administered on 01/01/17 08:17; Admin Dose 1 TAB; Start 12/31/16 at 21:00; Stop 01/07/17 at 09:01 Acetaminophen/ Hydrocodone Bitart ([place] (5/325)) 2 tab Q6H PRN PO SEVERE PAIN LEVEL 7-10 Last administered on 01/01/17 08:16; Admin Dose 2 TAB; Start at 19:30; Stop 01/14/17 at 19:29 Atorvastatin Calcium (Lipitor) 20 mg DAILY@21 PO Last administered on 20:28; Admin Dose 20 MG; Start 12/31/16 at 21:00 Docusate Sodium (Colace) 100 mg BID PO Last administered on 01/01/17 08:16; Admin Dose 100 MG; Start 12/31/16 at 21:00 Acetaminophen (Tylenol Tab) 650 mg Q4H PRN PO PAIN; Start 12/31/16 at 19:30 Bisacodyl (Dulcolax Supp) 10 mg DAILY PRN CO CONSTIPATION; Start 12/31/16 at 19 :30 Magnesium Hydroxide (Milk Of Mag) 30 ml BID PRN PO CONSTIPATION; Start at 19:30 Lactulose (Enulose) 20 gm DAILY PRN PO CONSTIPATION; Start 12/31/16 at 19:30 VISHAL COLVIN NP Jan 01, 2017 15:20
[2017-01-01 20:00] VITALS: BP 107/52; RESP 18
[2017-01-01] MEDS: ATORVASTATIN 20 MG TAB PO SCH (21:25)
--- NOTE | 2017-01-01 21:49 | RADRPT ---
PROCEDURE: Complete abdominal ultrasound. CLINICAL INDICATION: Abdominal pain, abnormal liver function tests TECHNIQUE: Copeland scale and color doppler ultrasound images of the complete abdomen. COMPARISON: None FINDINGS: Pancreas: Visualized portions appear of normal echogenicity without focal lesions. Liver: Morphology:Normal in size. Contour:Normal. Echogenicity: Mild increased Focal lesions:None. Main portal vein: Patent with hepatopetal flow. Biliary System: Gallbladder wall: Normal thickness. Gallstones: None. Intrahepatic bile ducts: Normal caliber. Common bile duct diameter (mm): 1.8 Kidneys: Right length (cm) : 9.8 Left length (cm) : 7.8, appears under measured due to incomplete visualization Right cortical thickness: Normal. Left cortical thickness: Normal. Echogenicity: Normal bilaterally. Hydronephrosis: None. Renal calculi: None. Focal lesions: None. Spleen: Size: Normal. Focal lesions: None. Free fluid/ascites: None. Abdominal aorta: Normal caliber of the visualized segments. Other findings: None. IMPRESSION: Normal gallbladder without gallstones. Mildly increased echogenicity of the liver suggestive of hepatic steatosis. No focal hepatic lesions are seen. RPTAT: AADD .Carlos Ramirez MD, MD Date Time Electronically viewed and signed by .Carlos Ramirez MD, on 01/01/2017 21:49 .B/
[2017-01-02 02:00] VITALS: BP 101/55; RESP 18
[2017-01-02 07:30] VITALS: BP 114/55; RESP 18
[2017-01-02 07:57] LABS: IRON 25 ug/dl (35-150)
[2017-01-02 08:06] LABS: TOTAL IRON BINDING CAPACITY 183 ug/dl (241-421)
[2017-01-02 08:13] LABS: CHOL/HDL RATIO 3.8 RATIO
[2017-01-02] MEDS: ASPIRIN (EC) 325 MG TAB PO SCH ×2 (08:25→20:37)
[2017-01-02] MEDS: DOCUSATE SODIUM 100 MG CAP PO SCH ×2 (08:25→20:36)
[2017-01-02] MEDS: CALCIUM/VITAMIN D (500/200) TAB PO SCH (08:25)
[2017-01-02] MEDS: SENNA/DOCUSATE NA (8.6MG/50MG) TAB PO SCH ×2 (08:25→20:41)
[2017-01-02] MEDS: HYDROCODONE/APAP (5/325) TAB PO PRN ×3 (08:26→17:53)
[2017-01-02] MEDS: MONTELUKAST 10 MG TAB PO SCH (12:13)
--- NOTE | 2017-01-02 13:59 | CONS ---
Date/Time of Note Date/Time of Note DATE: 01/02/17 TIME: 13:59 Consult Date/Type/Reason Admit Date/Time Dec 31, 2016 at 18:45 Initial Consult Date Subjective Motivated Objective pulm-cta max assist Vital Signs Date Time Temp Pulse Resp B/P Pulse Ox O2 Delivery O2 Flow Rate FiO2 01/02/17 07:30 98.2 84 18 114/55 97 Intake and Output 01/01/17 01/01/17 01/02/17 15:00 23:00 07:00 Intake Total 1160 ml 480 ml 760 ml Output Total 950 ml 900 ml Balance 210 ml -420 ml 760 ml Results/Medications Result Diagram: 01/01/17 0619 01/01/17 0619 Results 24 hrs Laboratory Tests Test 01/02/17 06:15 Iron Level 25 L Total Iron Binding Capacity 183 L Percent Iron Saturation 14 L Triglycerides Level 100 Cholesterol Level 132 LDL Cholesterol, Calculated 78 HDL Cholesterol 34 Cholesterol/HDL Ratio 3.8 Medications Current Medications Aspirin (Ecotrin) 325 mg BID PO Last administered on 01/02/17 08:25; Admin Dose 325 MG; Start 12/31/16 at 21:00; Stop 01/30/17 at 09:01 Calcium/Vitamin D (Oyster Shell/ Vit-D (500/200)) 1 tab DAILY PO Last administered on 01/02/17 08:25; Admin Dose 1 TAB; Start 01/01/17 at 09:00; Stop 01/30/17 at 09:01 Senna/Docusate Sodium (Senokot-S) 1 tab BID PO Last administered on 01/02/17 08:25; Admin Dose 1 TAB; Start 12/31/16 at 21:00; Stop 01/07/17 at 09:01 Acetaminophen/ Hydrocodone Bitart ([place] (5/325)) 2 tab Q6H PRN PO SEVERE PAIN LEVEL 7-10 Last administered on 01/02/17 12:14; Admin Dose 2 TAB; Start at 19:30; Stop 01/14/17 at 19:29 Atorvastatin Calcium (Lipitor) 20 mg DAILY@21 PO Last administered on 21:25; Admin Dose 20 MG; Start 12/31/16 at 21:00 Docusate Sodium (Colace) 100 mg BID PO Last administered on 01/02/17 08:25; Admin Dose 100 MG; Start 12/31/16 at 21:00 Acetaminophen (Tylenol Tab) 650 mg Q4H PRN PO PAIN; Start 12/31/16 at 19:30 Bisacodyl (Dulcolax Supp) 10 mg DAILY PRN [place] CONSTIPATION; Start 12/31/16 at 19 :30 Magnesium Hydroxide (Milk Of Mag) 30 ml BID PRN PO CONSTIPATION; Start at 19:30 Lactulose (Enulose) 20 gm DAILY PRN PO CONSTIPATION; Start 12/31/16 at 19:30 Assessment/Plan Additional Assessment/Plan Rehab- Left intertrochanteric hip fracture status post ORIF with cephalomedullary nailing. Continue rehab activities Acute left shoulder tendinitis, status post fall. Acute pain syndrome Anemia. SHRAVAN PYLE MD Jan 02, 2017 13:59
--- NOTE | 2017-01-02 14:32 | CONS ---
Date/Time of Note Date/Time of Note DATE: 01/02/17 TIME: 14:26 Assessment/Plan Assessment/Plan Chief Complaint/Hosp Course This is a 81-year-old female who sustained mechanical fall with resultant left hip fracture who underwent left hip ORIF and is being admitted to acute rehabilitation unit for further comprehensive interdisciplinary rehabilitation. 1. Hip fracture: s/p ORIF on 12/28/2016. -Continue pain control. Outpatient follow-up with orthopedics in 2 weeks after discharge. -Continue multidisciplinary physical therapy and rehabilitation 2. History of Dyslipidemia. Stable. LDL 78 -Would not recommend statin with elevated LFTs. Stable lipid panel. -Start fish oil. 3. Hepatic steatosis. Stable. 4. COPD. Stable. -Continue home medications. 5. Anemia with iron deficiency. -start oral replacement. Aspirin for DVT prophylaxis per surgery recommendation. Case discussed with Problems: Consultation Date/Type/Reason Admit Date/Time Dec 31, 2016 at 18:45 Initial Consult Date 24 HR Interval Summary Free Text/Dictation Overall doing well. Exam/Review of Systems Vital Signs Vitals Vital Signs Date Time Temp Pulse Resp B/P Pulse Ox O2 Delivery O2 Flow Rate FiO2 01/02/17 07:30 98.2 84 18 114/55 97 Intake and Output 01/01/17 01/01/17 01/02/17 15:00 23:00 07:00 Intake Total 1160 ml 480 ml 760 ml Output Total 950 ml 900 ml Balance 210 ml -420 ml 760 ml Exam General: Obese female, not in any acute distress . HEENT: Normocephalic, Atraumatic, No laceration or hematoma; Eyes: PEERL, Conjunctiva clear, Anicteric sclera Neck: Supple without any lymphadenopathy, nontender, no JVD, no carotid bruits, trachea midline, no thyromegaly Cardiac: S1, S2 auscultated, regular rhythm and rate, no mumurs or gallop Pulmonary: Normal respiratory effort. Chest clear to auscultation bilaterally, no adventitious breath sounds GI: Abdomen normal to inspection. Soft, non tender, non- distended, no masses, no rebound tenderness or guarding. Bowel sounds active on all four quadrants Genitourinary: Deferred Extremities: Left hip surgical dressing with drainage circled. No cyanosis, clubbing, or edema. Pulses [2+] bilaterally. Full ROM on all four extremities. No focal weakness appreciated. Neurologic: Alert to person, place, time, and situation. Affect appropriate, intact sensation. Skin: Clean,dry, and intact. No ecchymosis, no rashes, or lesions Results Result Diagram: 01/01/1719 01/01/17 0619 Results 24 hrs Laboratory Tests Test 01/02/17 06:15 Iron Level 25 L Total Iron Binding Capacity 183 L Percent Iron Saturation 14 L Triglycerides Level 100 Cholesterol Level 132 LDL Cholesterol, Calculated 78 HDL Cholesterol 34 Cholesterol/HDL Ratio 3.8 Medications Medications Current Medications Aspirin (Ecotrin) 325 mg BID PO Last administered on 01/02/17 08:25; Admin Dose 325 MG; Start 12/31/16 at 21:00; Stop 01/30/17 at 09:01 Calcium/Vitamin D (Oyster Shell/ Vit-D (500/200)) 1 tab DAILY PO Last administered on 01/02/17 08:25; Admin Dose 1 TAB; Start 01/01/17 at 09:00; Stop 01/30/17 at 09:01 Senna/Docusate Sodium (Senokot-S) 1 tab BID PO Last administered on 01/02/17 08:25; Admin Dose 1 TAB; Start 12/31/16 at 21:00; Stop 01/07/17 at 09:01 Acetaminophen/ Hydrocodone Bitart ([place] (5/325)) 2 tab Q6H PRN PO SEVERE PAIN LEVEL 7-10 Last administered on 01/02/17 12:14; Admin Dose 2 TAB; Start at 19:30; Stop 01/14/17 at 19:29 Atorvastatin Calcium (Lipitor) 20 mg DAILY@21 PO Last administered on 21:25; Admin Dose 20 MG; Start 12/31/16 at 21:00 Docusate Sodium (Colace) 100 mg BID PO Last administered on 01/02/17 08:25; Admin Dose 100 MG; Start 12/31/16 at 21:00 Acetaminophen (Tylenol Tab) 650 mg Q4H PRN PO PAIN; Start 12/31/16 at 19:30 Bisacodyl (Dulcolax Supp) 10 mg DAILY PRN [place] CONSTIPATION; Start 12/31/16 at 19 :30 Magnesium Hydroxide (Milk Of Mag) 30 ml BID PRN PO CONSTIPATION; Start at 19:30 Lactulose (Enulose) 20 gm DAILY PRN PO CONSTIPATION; Start 12/31/16 at 19:30 VISHAL COLVIN NP Jan 02, 2017 14:32
[2017-01-02 19:36] VITALS: BP 99/57; RESP 19
[2017-01-02] MEDS: FERROUS SULFATE (EC) 325 MG TAB PO SCH (20:36)
[2017-01-02] MEDS: FISH OIL 1,000 MG CAP PO SCH (20:36)
[2017-01-03] MEDS: HYDROCODONE/APAP (5/325) TAB PO PRN ×4 (00:03→20:34)
[2017-01-03 02:04] VITALS: BP 111/53; RESP 18
[2017-01-03 07:48] VITALS: BP 104/53; RESP 18
[2017-01-03] MEDS: FERROUS SULFATE (EC) 325 MG TAB PO SCH ×2 (08:48→20:34)
[2017-01-03] MEDS: DOCUSATE SODIUM 100 MG CAP PO SCH ×2 (08:48→20:35)
[2017-01-03] MEDS: SENNA/DOCUSATE NA (8.6MG/50MG) TAB PO SCH ×2 (08:48→20:35)
[2017-01-03] MEDS: ASPIRIN (EC) 325 MG TAB PO SCH ×2 (08:48→20:34)
[2017-01-03] MEDS: CALCIUM/VITAMIN D (500/200) TAB PO SCH (08:48)
[2017-01-03] MEDS: FISH OIL 1,000 MG CAP PO SCH ×2 (08:48→20:34)
--- NOTE | 2017-01-03 11:41 | CONS ---
Date/Time of Note Date/Time of Note DATE: 01/03/17 TIME: 11:40 Consult Date/Type/Reason Admit Date/Time Dec 31, 2016 at 18:45 Subjective Reports pain improving Objective pulm-cta max assist transfer Vital Signs Date Time Temp Pulse Resp B/P Pulse Ox O2 Delivery O2 Flow Rate FiO2 01/03/17 07:48 98.6 83 18 104/53 97 Intake and Output 01/02/17 01/02/17 01/03/17 15:00 23:00 07:00 Intake Total 1360 ml 280 ml Output Total 620 ml 3700 ml Balance 740 ml -3420 ml Results/Medications Result Diagram: 01/01/1761801/01/1719 Medications Current Medications Aspirin (Ecotrin) 325 mg BID PO Last administered on 01/03/17 08:48; Admin Dose 325 MG; Start 12/31/16 at 21:00; Stop 01/30/17 at 09:01 Calcium/Vitamin D (Oyster Shell/ Vit-D (500/200)) 1 tab DAILY PO Last administered on 01/03/17 08:48; Admin Dose 1 TAB; Start 01/01/17 at 09:00; Stop 01/30/17 at 09:01 Senna/Docusate Sodium (Senokot-S) 1 tab BID PO Last administered on 01/03/17 08 :48; Admin Dose 1 TAB; Start 12/31/16 at 21:00; Stop 01/07/17 at 09:01 Acetaminophen/ Hydrocodone Bitart ([place] (5/325)) 2 tab Q6H PRN PO SEVERE PAIN LEVEL 7-10 Last administered on 01/03/17 07:35; Admin Dose 2 TAB; Start at 19:30; Stop 01/14/17 at 19:29 Docusate Sodium (Colace) 100 mg BID PO Last administered on 01/03/17 08:48; Admin Dose 100 MG; Start 12/31/16 at 21:00 Acetaminophen (Tylenol Tab) 650 mg Q4H PRN PO PAIN; Start 12/31/16 at 19:30 Bisacodyl (Dulcolax Supp) 10 mg DAILY PRN [place] CONSTIPATION; Start 12/31/16 at 19 :30 Magnesium Hydroxide (Milk Of Mag) 30 ml BID PRN PO CONSTIPATION; Start at 19:30 Lactulose (Enulose) 20 gm DAILY PRN PO CONSTIPATION; Start 12/31/16 at 19:30 Ferrous Sulfate (Ferrous Sulfate (Ec)) 325 mg BID PO Last administered on 08:48; Admin Dose 325 MG; Start 01/02/17 at 21:00 Fish Oil (Fish Oil) 1,000 mg BID PO Last administered on 01/03/17 08:48; Admin Dose 1,000 MG; Start 01/02/17 at 21:00 Assessment/Plan Additional Assessment/Plan Rehab- Left intertrochanteric hip fracture status post ORIF with cephalomedullary nailing. Continue interdisciplinary rehab Acute left shoulder tendinitis, status post fall. Acute pain syndrome Anemia. SHRAVAN PYLE MD Jan 03, 2017 11:41
[2017-01-03] MEDS: MONTELUKAST 10 MG TAB PO SCH (12:26)
--- NOTE | 2017-01-03 16:16 | CONS ---
Date/Time of Note Date/Time of Note DATE: 01/03/17 TIME: 16:14 Consult Date/Type/Reason Admit Date/Time Dec 31, 2016 at 18:45 Initial Consult Date Type of Consultation: Im Subjective Comfortable, tired after PT. Objective Vital Signs Date Time Temp Pulse Resp B/P Pulse Ox O2 Delivery O2 Flow Rate FiO2 01/03/17 07:48 98.6 83 18 104/53 97 Intake and Output 01/02/17 01/02/17 01/03/17 15:00 23:00 07:00 Intake Total 1360 ml 280 ml Output Total 620 ml 3700 ml Balance 740 ml -3420 ml Exam elderly CF comfortable HEENT. MMM PEERL OP clear cvs: s1s2 rs: clear bilaterally abdo: soft nt bs present. ext. no cy cl ed Results/Medications Result Diagram: 01/01/1761801/01/1719 Medications Current Medications Aspirin (Ecotrin) 325 mg BID PO Last administered on 01/03/17 08:48; Admin Dose 325 MG; Start 12/31/16 at 21:00; Stop 01/30/17 at 09:01 Calcium/Vitamin D (Oyster Shell/ Vit-D (500/200)) 1 tab DAILY PO Last administered on 01/03/17 08:48; Admin Dose 1 TAB; Start 01/01/17 at 09:00; Stop 01/30/17 at 09:01 Senna/Docusate Sodium (Senokot-S) 1 tab BID PO Last administered on 01/03/17 08 :48; Admin Dose 1 TAB; Start 12/31/16 at 21:00; Stop 01/07/17 at 09:01 Acetaminophen/ Hydrocodone Bitart ([place] (5/325)) 2 tab Q6H PRN PO SEVERE PAIN LEVEL 7-10 Last administered on 01/03/17 13:58; Admin Dose 2 TAB; Start at 19:30; Stop 01/14/17 at 19:29 Docusate Sodium (Colace) 100 mg BID PO Last administered on 01/03/17 08:48; Admin Dose 100 MG; Start 12/31/16 at 21:00 Acetaminophen (Tylenol Tab) 650 mg Q4H PRN PO PAIN; Start 12/31/16 at 19:30 Bisacodyl (Dulcolax Supp) 10 mg DAILY PRN [place] CONSTIPATION; Start 12/31/16 at 19 :30 Magnesium Hydroxide (Milk Of Mag) 30 ml BID PRN PO CONSTIPATION; Start at 19:30 Lactulose (Enulose) 20 gm DAILY PRN PO CONSTIPATION; Start 12/31/16 at 19:30 Ferrous Sulfate (Ferrous Sulfate (Ec)) 325 mg BID PO Last administered on 08:48; Admin Dose 325 MG; Start 01/02/17 at 21:00 Fish Oil (Fish Oil) 1,000 mg BID PO Last administered on 01/03/17 08:48; Admin Dose 1,000 MG; Start 01/02/17 at 21:00 Assessment/Plan Chief Complaint/Hosp Course 1. Hip fracture: s/p ORIF on 12/28/2016. -Continue pain control. Outpatient follow-up with orthopedics in 2 weeks after discharge. -Continue multidisciplinary physical therapy and rehabilitation 2. History of Dyslipidemia. Stable. LDL 78 -Would not recommend statin with elevated LFTs. Stable lipid panel. -Fish oil 3. Hepatic steatosis. Stable. 4. COPD. Stable. -Continue home medications. 5. Anemia with iron deficiency. -start oral replacement. Aspirin for DVT prophylaxis per surgery recommendation. Problems: PATY CHRISTINA MD, [facility] Jan 03, 2017 16:16
[2017-01-03 20:00] VITALS: BP 98/53; RESP 18
[2017-01-04 02:07] VITALS: BP 101/58; RESP 18
[2017-01-04 07:30] VITALS: BP 112/67; RESP 20
[2017-01-04] MEDS: CALCIUM/VITAMIN D (500/200) TAB PO SCH (08:44)
[2017-01-04] MEDS: ASPIRIN (EC) 325 MG TAB PO SCH ×2 (08:44→20:18)
[2017-01-04] MEDS: DOCUSATE SODIUM 100 MG CAP PO SCH ×2 (08:44→20:18)
[2017-01-04] MEDS: SENNA/DOCUSATE NA (8.6MG/50MG) TAB PO SCH ×2 (08:44→20:18)
[2017-01-04] MEDS: FISH OIL 1,000 MG CAP PO SCH ×2 (08:44→20:18)
[2017-01-04] MEDS: HYDROCODONE/APAP (5/325) TAB PO PRN ×3 (08:44→23:06)
[2017-01-04] MEDS: FERROUS SULFATE (EC) 325 MG TAB PO SCH ×2 (08:44→20:18)
--- NOTE | 2017-01-04 11:17 | CONS ---
Date/Time of Note Date/Time of Note DATE: 01/04/17 TIME: 11:17 Consult Date/Type/Reason Admit Date/Time Dec 31, 2016 at 18:45 Type of Consultation: Im Subjective Feeling better Objective pulm-cta mod assist transfer Vital Signs Date Time Temp Pulse Resp B/P Pulse Ox O2 Delivery O2 Flow Rate FiO2 01/04/17 07:30 98.8 82 20 112/67 96 Intake and Output 01/03/17 01/03/17 01/04/17 15:00 23:00 07:00 Intake Total 800 ml 600 ml 550 ml Output Total 750 ml 500 ml Balance 50 ml 100 ml 550 ml Results/Medications Result Diagram: 01/01/1761801/01/17618 Medications Current Medications Aspirin (Ecotrin) 325 mg BID PO Last administered on 01/04/17 08:44; Admin Dose 325 MG; Start 12/31/16 at 21:00; Stop 01/30/17 at 09:01 Calcium/Vitamin D (Oyster Shell/ Vit-D (500/200)) 1 tab DAILY PO Last administered on 01/04/17 08:44; Admin Dose 1 TAB; Start 01/01/17 at 09:00; Stop 01/30/17 at 09:01 Senna/Docusate Sodium (Senokot-S) 1 tab BID PO Last administered on 01/04/17 08 :44; Admin Dose 1 TAB; Start 12/31/16 at 21:00; Stop 01/07/17 at 09:01 Acetaminophen/ Hydrocodone Bitart ([place] (5/325)) 2 tab Q6H PRN PO SEVERE PAIN LEVEL 7-10 Last administered on 01/04/17 08:44; Admin Dose 2 TAB; Start at 19:30; Stop 01/14/17 at 19:29 Docusate Sodium (Colace) 100 mg BID PO Last administered on 01/04/17 08:44; Admin Dose 100 MG; Start 12/31/16 at 21:00 Acetaminophen (Tylenol Tab) 650 mg Q4H PRN PO PAIN; Start 12/31/16 at 19:30 Bisacodyl (Dulcolax Supp) 10 mg DAILY PRN [place] CONSTIPATION; Start 12/31/16 at 19 :30 Magnesium Hydroxide (Milk Of Mag) 30 ml BID PRN PO CONSTIPATION; Start at 19:30 Lactulose (Enulose) 20 gm DAILY PRN PO CONSTIPATION; Start 12/31/16 at 19:30 Ferrous Sulfate (Ferrous Sulfate (Ec)) 325 mg BID PO Last administered on 08:44; Admin Dose 325 MG; Start 01/02/17 at 21:00 Fish Oil (Fish Oil) 1,000 mg BID PO Last administered on 01/04/17 08:44; Admin Dose 1,000 MG; Start 01/02/17 at 21:00 Assessment/Plan Additional Assessment/Plan ehab- Left intertrochanteric hip fracture status post ORIF with cephalomedullary nailing. Continue rehab program Acute left shoulder tendinitis, status post fall. - voiding trial soon Acute pain syndrome Anemia. SHRAVAN PYLE MD Jan 04, 2017 11:17
--- NOTE | 2017-01-04 11:47 | CONS ---
Date/Time of Note Date/Time of Note DATE: 01/04/17 TIME: 11:46 Consult Date/Type/Reason Admit Date/Time Dec 31, 2016 at 18:45 Type of Consultation: Im Subjective Patient comfortable this morning. Objective Vital Signs Date Time Temp Pulse Resp B/P Pulse Ox O2 Delivery O2 Flow Rate FiO2 01/04/17 07:30 98.8 82 20 112/67 96 Intake and Output 01/03/17 01/03/17 01/04/17 15:00 23:00 07:00 Intake Total 800 ml 600 ml 550 ml Output Total 750 ml 500 ml Balance 50 ml 100 ml 550 ml Exam GENERAL: Elderly lady appears comfortable at rest VITAL SIGNS: per chart NECK: Supple. No JVD or lymphadenopathy. CARDIAC EXAM: S1, S2. No added sounds or murmurs. CHEST: clear bilaterally, No added sounds, rales or wheezes ABDOMEN: Soft, nontender. No guarding or rebound. EXTREMITIES: No cyanosis, clubbing or edema. NEUROLOGIC: Generalized weakness. No focal deficits. Results/Medications Result Diagram: 01/01/1761801/01/1719 Medications Current Medications Aspirin (Ecotrin) 325 mg BID PO Last administered on 01/04/17 08:44; Admin Dose 325 MG; Start 12/31/16 at 21:00; Stop 01/30/17 at 09:01 Calcium/Vitamin D (Oyster Shell/ Vit-D (500/200)) 1 tab DAILY PO Last administered on 01/04/17 08:44; Admin Dose 1 TAB; Start 01/01/17 at 09:00; Stop 01/30/17 at 09:01 Senna/Docusate Sodium (Senokot-S) 1 tab BID PO Last administered on 01/04/17 08 :44; Admin Dose 1 TAB; Start 12/31/16 at 21:00; Stop 01/07/17 at 09:01 Acetaminophen/ Hydrocodone Bitart ([place] (5/325)) 2 tab Q6H PRN PO SEVERE PAIN LEVEL 7-10 Last administered on 01/04/17 08:44; Admin Dose 2 TAB; Start at 19:30; Stop 01/14/17 at 19:29 Docusate Sodium (Colace) 100 mg BID PO Last administered on 01/04/17 08:44; Admin Dose 100 MG; Start 12/31/16 at 21:00 Acetaminophen (Tylenol Tab) 650 mg Q4H PRN PO PAIN; Start 12/31/16 at 19:30 Bisacodyl (Dulcolax Supp) 10 mg DAILY PRN [place] CONSTIPATION; Start 12/31/16 at 19 :30 Magnesium Hydroxide (Milk Of Mag) 30 ml BID PRN PO CONSTIPATION; Start at 19:30 Lactulose (Enulose) 20 gm DAILY PRN PO CONSTIPATION; Start 12/31/16 at 19:30 Ferrous Sulfate (Ferrous Sulfate (Ec)) 325 mg BID PO Last administered on 08:44; Admin Dose 325 MG; Start 01/02/17 at 21:00 Fish Oil (Fish Oil) 1,000 mg BID PO Last administered on 01/04/17 08:44; Admin Dose 1,000 MG; Start 01/02/17 at 21:00 Assessment/Plan Chief Complaint/Hosp Course 1. Hip fracture: s/p ORIF on 12/28/2016. -Continue pain control. Outpatient follow-up with orthopedics in 2 weeks after discharge. -Continue multidisciplinary physical therapy and rehabilitation Continues aspirin orthopedics for DVT prophylaxis 2. History of Dyslipidemia. Stable. LDL 78 -Would not recommend statin with elevated LFTs. Stable lipid panel. -Fish oil 3. Hepatic steatosis. Stable. 4. COPD. Stable. -Continue home medications. Outpatient PFTs 5. Anemia with iron deficiency. Monitor H&H Problems: [facility]STINA [facility], [facility] Jan 04, 2017 11:47
[2017-01-04] MEDS: MONTELUKAST 10 MG TAB PO SCH (12:12)
[2017-01-04 14:00] VITALS: BP 100/59; RESP 18
[2017-01-04 20:14] VITALS: BP 101/52; RESP 18
[2017-01-05 02:22] VITALS: BP 105/57; RESP 18
[2017-01-05 07:30] VITALS: BP 102/52; RESP 18
[2017-01-05] MEDS: FISH OIL 1,000 MG CAP PO SCH ×2 (08:43→20:53)
[2017-01-05] MEDS: SENNA/DOCUSATE NA (8.6MG/50MG) TAB PO SCH ×2 (08:44→20:54)
[2017-01-05] MEDS: DOCUSATE SODIUM 100 MG CAP PO SCH ×2 (08:44→20:52)
[2017-01-05] MEDS: ASPIRIN (EC) 325 MG TAB PO SCH ×2 (08:44→20:53)
[2017-01-05] MEDS: CALCIUM/VITAMIN D (500/200) TAB PO SCH (08:44)
[2017-01-05] MEDS: FERROUS SULFATE (EC) 325 MG TAB PO SCH ×2 (08:44→20:52)
[2017-01-05] MEDS: MONTELUKAST 10 MG TAB PO SCH (11:36)
[2017-01-05] MEDS: HYDROCODONE/APAP (5/325) TAB PO PRN ×2 (11:37→20:53)
--- NOTE | 2017-01-05 13:22 | CONS ---
Date/Time of Note Date/Time of Note DATE: 01/05/17 TIME: 13:21 Consult Date/Type/Reason Admit Date/Time Dec 31, 2016 at 18:45 Type of Consultation: Im Subjective Comfortable. No events. Objective Vital Signs Date Time Temp Pulse Resp B/P Pulse Ox O2 Delivery O2 Flow Rate FiO2 01/05/17 07:30 98.2 78 18 102/52 95 Intake and Output 01/04/17 01/04/17 01/05/17 15:00 23:00 07:00 Intake Total 620 ml 750 ml Output Total 800 ml Balance -180 ml 750 ml Exam GENERAL: Elderly lady appears comfortable at rest VITAL SIGNS: per chart NECK: Supple. No JVD or lymphadenopathy. CARDIAC EXAM: S1, S2. No added sounds or murmurs. CHEST: clear bilaterally, No added sounds, rales or wheezes ABDOMEN: Soft, nontender. No guarding or rebound. EXTREMITIES: No cyanosis, clubbing or edema. NEUROLOGIC: Generalized weakness. No focal deficits. Results/Medications Result Diagram: 01/01/1761801/01/17 0619 Medications Current Medications Aspirin (Ecotrin) 325 mg BID PO Last administered on 01/05/17 08:44; Admin Dose 325 MG; Start 12/31/16 at 21:00; Stop 01/30/17 at 09:01 Calcium/Vitamin D (Oyster Shell/ Vit-D (500/200)) 1 tab DAILY PO Last administered on 01/05/17 08:44; Admin Dose 1 TAB; Start 01/01/17 at 09:00; Stop 01/30/17 at 09:01 Senna/Docusate Sodium (Senokot-S) 1 tab BID PO Last administered on 01/05/17 08 :44; Admin Dose 1 TAB; Start 12/31/16 at 21:00; Stop 01/07/17 at 09:01 Acetaminophen/ Hydrocodone Bitart ([place] (5/325)) 2 tab Q6H PRN PO SEVERE PAIN LEVEL 7-10 Last administered on 01/05/17 11:37; Admin Dose 2 TAB; Start at 19:30; Stop 01/14/17 at 19:29 Docusate Sodium (Colace) 100 mg BID PO Last administered on 01/05/17 08:44; Admin Dose 100 MG; Start 12/31/16 at 21:00 Acetaminophen (Tylenol Tab) 650 mg Q4H PRN PO PAIN; Start 12/31/16 at 19:30 Bisacodyl (Dulcolax Supp) 10 mg DAILY PRN [place] CONSTIPATION; Start 12/31/16 at 19 :30 Magnesium Hydroxide (Milk Of Mag) 30 ml BID PRN PO CONSTIPATION; Start at 19:30 Lactulose (Enulose) 20 gm DAILY PRN PO CONSTIPATION; Start 12/31/16 at 19:30 Ferrous Sulfate (Ferrous Sulfate (Ec)) 325 mg BID PO Last administered on 08:44; Admin Dose 325 MG; Start 01/02/17 at 21:00 Fish Oil (Fish Oil) 1,000 mg BID PO Last administered on 01/05/17 08:43; Admin Dose 1,000 MG; Start 01/02/17 at 21:00 Assessment/Plan Chief Complaint/Hosp Course 1. Hip fracture: s/p ORIF on 12/28/2016. -Continue pain control. Outpatient follow-up with orthopedics in 2 weeks after discharge. -Continue multidisciplinary physical therapy and rehabilitation Continues aspirin orthopedics for DVT prophylaxis 2. History of Dyslipidemia. Stable. LDL 78 -Would not recommend statin with elevated LFTs. Stable lipid panel. -Fish oil 3. Hepatic steatosis. Stable. 4. COPD. Stable. -Continue home medications. Outpatient PFTs 5. Anemia with iron deficiency. Monitor H&H Problems: [facility], [facility] Jan 05, 2017 13:22
[2017-01-05 19:28] VITALS: BP 115/56; RESP 16
[2017-01-06 02:00] VITALS: BP 108/56; RESP 16
[2017-01-06 07:07] LABS: BASOPHIL # 0.1 10^3/ul (0.0-0.1); BASOPHILS % 0.6 % (0.0-2.0); EOSINOPHILS # 0.2 10^3/ul (0.0-0.5); HEMATOCRIT 26.7 % (37.0-47.0); HEMOGLOBIN 8.6 g/dl (12.0-16.0); LYMPHOCYTES # 1.3 10^3/ul (0.8-2.9); LYMPHOCYTES % 16.1 % (15.0-51.0); MEAN CORPUSCULAR HEMOGLOBIN 30.6 pg (29.0-33.0); MEAN CORPUSCULAR HGB CONC 32.2 g/dl (32.0-37.0); MEAN PLATELET VOLUME 9.1 fl (7.4-10.4); MONOCYTE # 0.7 10^3/ul (0.3-0.9); MONOCYTES % 9.1 % (0.0-11.0); NEUTROPHILS % 71.1 % (39.0-77.0); PLATELET COUNT 259 10^3/UL (140-415); RED BLOOD COUNT 2.81 10^6/ul (4.20-5.40); RED CELL DISTRIBUTION WIDTH 15.7 % (11.5-14.5); WHITE BLOOD COUNT 8.1 10^3/ul (4.8-10.8)
[2017-01-06 07:30] VITALS: BP 121/56; RESP 18
[2017-01-06 07:35] LABS: CALCIUM 8.6 mg/dl (8.4-10.2); CREATININE 0.7 mg/dl (0.44-1.00); MAGNESIUM 2.4 mg/dl (1.7-2.5); PHOSPHORUS 4.1 mg/dl (2.5-4.9); POTASSIUM 4.7 mmol/L (3.5-5.1)
[2017-01-06] MEDS: HYDROCODONE/APAP (5/325) TAB PO PRN ×3 (07:47→21:09)
[2017-01-06] MEDS: FISH OIL 1,000 MG CAP PO SCH ×2 (07:48→21:09)
[2017-01-06] MEDS: DOCUSATE SODIUM 100 MG CAP PO SCH ×2 (07:48→21:09)
[2017-01-06] MEDS: FERROUS SULFATE (EC) 325 MG TAB PO SCH ×2 (07:48→21:09)
[2017-01-06] MEDS: SENNA/DOCUSATE NA (8.6MG/50MG) TAB PO SCH ×2 (07:48→21:09)
[2017-01-06] MEDS: CALCIUM/VITAMIN D (500/200) TAB PO SCH (07:48)
[2017-01-06] MEDS: ASPIRIN (EC) 325 MG TAB PO SCH ×2 (07:48→21:09)
--- NOTE | 2017-01-06 08:53 | CONS ---
Date/Time of Note Date/Time of Note DATE: 01/06/17 TIME: 08:52 Consult Date/Type/Reason Admit Date/Time Dec 31, 2016 at 18:45 Type of Consultation: Im Objective Vital Signs Date Time Temp Pulse Resp B/P Pulse Ox O2 Delivery O2 Flow Rate FiO2 01/06/17 07:30 98.3 78 18 121/56 96 Intake and Output 01/05/17 01/05/17 01/06/17 15:00 23:00 07:00 Intake Total 1980 ml 660 ml Output Total 1300 ml 2100 ml Balance 680 ml -1440 ml INTERDISCIPLINARY TEAM CONFERENCE BOWEL- Cont BLADDER-voiding trial SKIN- clean/dry OT- DRESSING-mod BATHING-mod TOILETING-mod PT- BED MOBILITY-min/mod TRANSFERS-min/mod AMBULATION-mod 6 feet W.C. MOBILITY-min A/P- Interdisciplinary team conference held today. Please see interdisciplinary sheet. Working toward d.c. on 01/16 with post discharge follow up of physical therapy, occupational therapy. Results/Medications Result Diagram: 01/06/17 0606 01/06/17 0606 Results 24 hrs Laboratory Tests Test 01/06/17 06:06 White Blood Count 8.1 Red Blood Count 2.81 L Hemoglobin 8.6 L Hematocrit 26.7 L Mean Corpuscular Volume 95.0 Mean Corpuscular Hemoglobin 30.6 Mean Corpuscular Hemoglobin Concent 32.2 Red Cell Distribution Width 15.7 H Platelet Count 259 # Mean Platelet Volume 9.1 Neutrophils % 71.1 Lymphocytes % 16.1 Monocytes % 9.1 Eosinophils % 2.0 Basophils % 0.6 Nucleated Red Blood Cells % 0.0 Neutrophils # (Manual) 5.7 Lymphocytes # 1.3 Monocytes # 0.7 Eosinophils # 0.2 Basophils # 0.1 Nucleated Red Blood Cells # 0.0 Sodium Level 136 Potassium Level 4.7 Chloride Level 103 Carbon Dioxide Level 29 Anion Gap 9 Blood Urea Nitrogen 15 Creatinine 0.70 Glucose Level 89 Calcium Level 8.6 Phosphorus Level 4.1 Magnesium Level 2.4 Medications Current Medications Aspirin (Ecotrin) 325 mg BID PO Last administered on 01/06/17t 07:48; Admin Dose 325 MG; Start 12/31/16 at 21:00; Stop 01/30/17 at 09:01 Calcium/Vitamin D (Oyster Shell/ Vit-D (500/200)) 1 tab DAILY PO Last administered on 01/06/17 07:48; Admin Dose 1 TAB; Start 01/01/17 at 09:00; Stop 01/30/17 at 09:01 Senna/Docusate Sodium (Senokot-S) 1 tab BID PO Last administered on 01/06/17 07 :48; Admin Dose 1 TAB; Start 12/31/16 at 21:00; Stop 01/07/17 at 09:01 Acetaminophen/ Hydrocodone Bitart ([place] (5/325)) 2 tab Q6H PRN PO SEVERE PAIN LEVEL 7-10 Last administered on 01/06/17 07:47; Admin Dose 2 TAB; Start at 19:30; Stop 01/14/17 at 19:29 Docusate Sodium (Colace) 100 mg BID PO Last administered on 01/06/17 07:48; Admin Dose 100 MG; Start 12/31/16 at 21:00 Acetaminophen (Tylenol Tab) 650 mg Q4H PRN PO PAIN; Start 12/31/16 at 19:30 Bisacodyl (Dulcolax Supp) 10 mg DAILY PRN [place] CONSTIPATION; Start 12/31/16 at 19 :30 Magnesium Hydroxide (Milk Of Mag) 30 ml BID PRN PO CONSTIPATION; Start at 19:30 Lactulose (Enulose) 20 gm DAILY PRN PO CONSTIPATION; Start 12/31/16 at 19:30 Ferrous Sulfate (Ferrous Sulfate (Ec)) 325 mg BID PO Last administered on 07:48; Admin Dose 325 MG; Start 01/02/17 at 21:00 Fish Oil (Fish Oil) 1,000 mg BID PO Last administered on 01/06/17 07:48; Admin Dose 1,000 MG; Start 01/02/17 at 21:00 SHRAVAN PYLE MD Jan 06, 2017 08:53
--- NOTE | 2017-01-06 11:40 | CONS ---
Date/Time of Note Date/Time of Note DATE: 01/06/17 TIME: 11:40 Consult Date/Type/Reason Admit Date/Time Dec 31, 2016 at 18:45 Type of Consultation: Im Subjective Remains comfortable. Objective Vital Signs Date Time Temp Pulse Resp B/P Pulse Ox O2 Delivery O2 Flow Rate FiO2 01/06/17 07:30 98.3 78 18 121/56 96 Intake and Output 01/05/17 01/05/17 01/06/17 15:00 23:00 07:00 Intake Total 1980 ml 660 ml Output Total 1300 ml 2100 ml Balance 680 ml -1440 ml Exam GENERAL: Elderly lady appears comfortable at rest VITAL SIGNS: per chart NECK: Supple. No JVD or lymphadenopathy. CARDIAC EXAM: S1, S2. No added sounds or murmurs. CHEST: clear bilaterally, No added sounds, rales or wheezes ABDOMEN: Soft, nontender. No guarding or rebound. EXTREMITIES: No cyanosis, clubbing or edema. NEUROLOGIC: Generalized weakness. No focal deficits. Results/Medications Result Diagram: 01/06/17 0606 01/06/17 0606 Results 24 hrs Laboratory Tests Test 01/06/17 06:06 White Blood Count 8.1 Red Blood Count 2.81 L Hemoglobin 8.6 L Hematocrit 26.7 L Mean Corpuscular Volume 95.0 Mean Corpuscular Hemoglobin 30.6 Mean Corpuscular Hemoglobin Concent 32.2 Red Cell Distribution Width 15.7 H Platelet Count 259 # Mean Platelet Volume 9.1 Neutrophils % 71.1 Lymphocytes % 16.1 Monocytes % 9.1 Eosinophils % 2.0 Basophils % 0.6 Nucleated Red Blood Cells % 0.0 Neutrophils # (Manual) 5.7 Lymphocytes # 1.3 Monocytes # 0.7 Eosinophils # 0.2 Basophils # 0.1 Nucleated Red Blood Cells # 0.0 Sodium Level 136 Potassium Level 4.7 Chloride Level 103 Carbon Dioxide Level 29 Anion Gap 9 Blood Urea Nitrogen 15 Creatinine 0.70 Glucose Level 89 Calcium Level 8.6 Phosphorus Level 4.1 Magnesium Level 2.4 Medications Current Medications Aspirin (Ecotrin) 325 mg BID PO Last administered on 01/06/17t 07:48; Admin Dose 325 MG; Start 12/31/16 at 21:00; Stop 01/30/17 at 09:01 Calcium/Vitamin D (Oyster Shell/ Vit-D (500/200)) 1 tab DAILY PO Last administered on 01/06/17 07:48; Admin Dose 1 TAB; Start 01/01/17 at 09:00; Stop 01/30/17 at 09:01 Senna/Docusate Sodium (Senokot-S) 1 tab BID PO Last administered on 01/06/17 07 :48; Admin Dose 1 TAB; Start 12/31/16 at 21:00; Stop 01/07/17 at 09:01 Acetaminophen/ Hydrocodone Bitart ([place] (5/325)) 2 tab Q6H PRN PO SEVERE PAIN LEVEL 7-10 Last administered on 01/06/17 07:47; Admin Dose 2 TAB; Start at 19:30; Stop 01/14/17 at 19:29 Docusate Sodium (Colace) 100 mg BID PO Last administered on 01/06/17 07:48; Admin Dose 100 MG; Start 12/31/16 at 21:00 Acetaminophen (Tylenol Tab) 650 mg Q4H PRN PO PAIN; Start 12/31/16 at 19:30 Bisacodyl (Dulcolax Supp) 10 mg DAILY PRN [place] CONSTIPATION; Start 12/31/16 at 19 :30 Magnesium Hydroxide (Milk Of Mag) 30 ml BID PRN PO CONSTIPATION; Start at 19:30 Lactulose (Enulose) 20 gm DAILY PRN PO CONSTIPATION; Start 12/31/16 at 19:30 Ferrous Sulfate (Ferrous Sulfate (Ec)) 325 mg BID PO Last administered on 07:48; Admin Dose 325 MG; Start 01/02/17 at 21:00 Fish Oil (Fish Oil) 1,000 mg BID PO Last administered on 01/06/17 07:48; Admin Dose 1,000 MG; Start 01/02/17 at 21:00 Assessment/Plan Chief Complaint/Hosp Course 1. Hip fracture: s/p ORIF on 12/28/2016. -Continue pain control. Outpatient follow-up with orthopedics in 2 weeks after discharge. -Continue multidisciplinary physical therapy and rehabilitation Continues aspirin orthopedics for DVT prophylaxis 2. History of Dyslipidemia. Stable. LDL 78 -Would not recommend statin with elevated LFTs. Stable lipid panel. -Fish oil 3. Hepatic steatosis. Stable. 4. COPD. Stable. -Continue home medications. Outpatient PFTs 5. Anemia with iron deficiency. Monitor H&H Problems: PATY CHRISTINA MD, [facility] Jan 06, 2017 11:40
[2017-01-06] MEDS: MONTELUKAST 10 MG TAB PO SCH (12:08)
[2017-01-06 14:00] VITALS: BP 113/55; RESP 18
[2017-01-06 19:10] VITALS: BP 109/54; RESP 20
[2017-01-07 05:30] VITALS: BP 100/55; PULSE 85; RESP 16
[2017-01-07 08:00] VITALS: BP 107/50; RESP 18
[2017-01-07] MEDS: ASPIRIN (EC) 325 MG TAB PO SCH ×2 (08:26→20:47)
[2017-01-07] MEDS: SENNA/DOCUSATE NA (8.6MG/50MG) TAB PO SCH (08:26)
[2017-01-07] MEDS: FERROUS SULFATE (EC) 325 MG TAB PO SCH ×2 (08:28→20:47)
[2017-01-07] MEDS: CALCIUM/VITAMIN D (500/200) TAB PO SCH (08:28)
[2017-01-07] MEDS: DOCUSATE SODIUM 100 MG CAP PO SCH ×2 (08:28→20:47)
[2017-01-07] MEDS: FISH OIL 1,000 MG CAP PO SCH ×2 (08:28→20:46)
[2017-01-07] MEDS: HYDROCODONE/APAP (5/325) TAB PO PRN ×3 (08:29→20:49)
--- NOTE | 2017-01-07 12:29 | CONS ---
Date/Time of Note Date/Time of Note DATE: 01/07/17 TIME: 12:27 Consult Date/Type/Reason Admit Date/Time Dec 31, 2016 at 18:45 Type of Consultation: Im Subjective Overall improving Objective pulm-cta min assist ambulation Vital Signs Date Time Temp Pulse Resp B/P Pulse Ox O2 Delivery O2 Flow Rate FiO2 01/07/17 08:00 98.4 50 18 107/50 96 01/07/17 05:30 Room Air Intake and Output 01/06/17 01/06/17 01/07/17 15:00 23:00 07:00 Intake Total 900 ml Output Total 350 ml 600 ml Balance -350 ml 300 ml Results/Medications Result Diagram: 01/06/1760501/06/1706 Medications Current Medications Aspirin (Ecotrin) 325 mg BID PO Last administered on 01/07/17 08:26; Admin Dose 325 MG; Start 12/31/16 at 21:00; Stop 01/30/17 at 09:01 Calcium/Vitamin D (Oyster Shell/ Vit-D (500/200)) 1 tab DAILY PO Last administered on 01/07/17 08:28; Admin Dose 1 TAB; Start 01/01/17 at 09:00; Stop 01/30/17 at 09:01 Acetaminophen/ Hydrocodone Bitart ([place] (5/325)) 2 tab Q6H PRN PO SEVERE PAIN LEVEL 7-10 Last administered on 01/07/17 08:29; Admin Dose 2 TAB; Start at 19:30; Stop 01/14/17 at 19:29 Docusate Sodium (Colace) 100 mg BID PO Last administered on 01/07/17 08:28; Admin Dose 100 MG; Start 12/31/16 at 21:00 Acetaminophen (Tylenol Tab) 650 mg Q4H PRN PO PAIN; Start 12/31/16 at 19:30 Bisacodyl (Dulcolax Supp) 10 mg DAILY PRN [place] CONSTIPATION; Start 12/31/16 at 19 :30 Magnesium Hydroxide (Milk Of Mag) 30 ml BID PRN PO CONSTIPATION; Start at 19:30 Lactulose (Enulose) 20 gm DAILY PRN PO CONSTIPATION; Start 12/31/16 at 19:30 Ferrous Sulfate (Ferrous Sulfate (Ec)) 325 mg BID PO Last administered on 08:28; Admin Dose 325 MG; Start 01/02/17 at 21:00 Fish Oil (Fish Oil) 1,000 mg BID PO Last administered on 01/07/17 08:28; Admin Dose 1,000 MG; Start 01/02/17 at 21:00 Assessment/Plan Additional Assessment/Plan Rehab- Left intertrochanteric hip fracture status post ORIF with cephalomedullary nailing. Continue rehab activities Acute left shoulder tendinitis, status post fall. - dominique out, voiding Acute pain syndrome-improving Anemia. SHRAVAN PYLE MD Jan 07, 2017 12:29
[2017-01-07] MEDS: MONTELUKAST 10 MG TAB PO SCH (13:02)
--- NOTE | 2017-01-07 15:46 | CONS ---
Date/Time of Note Date/Time of Note DATE: 01/07/17 TIME: 15:44 Consult Date/Type/Reason Admit Date/Time Dec 31, 2016 at 18:45 Type of Consultation: Im Subjective Comfortable. Objective Vital Signs Date Time Temp Pulse Resp B/P Pulse Ox O2 Delivery O2 Flow Rate FiO2 01/07/17 08:00 98.4 50 18 107/50 96 01/07/17 05:30 Room Air Intake and Output 01/06/17 01/06/17 01/07/17 15:00 23:00 07:00 Intake Total 900 ml Output Total 350 ml 600 ml Balance -350 ml 300 ml Exam GENERAL: Elderly lady appears comfortable at rest VITAL SIGNS: per chart NECK: Supple. No JVD or lymphadenopathy. CARDIAC EXAM: S1, S2. No added sounds or murmurs. CHEST: clear bilaterally, No added sounds, rales or wheezes ABDOMEN: Soft, nontender. No guarding or rebound. EXTREMITIES: No cyanosis, clubbing or edema. NEUROLOGIC: Generalized weakness. No focal deficits. Results/Medications Result Diagram: 01/06/17 0606 01/06/17 0606 Medications Current Medications Aspirin (Ecotrin) 325 mg BID PO Last administered on 01/07/17 08:26; Admin Dose 325 MG; Start 12/31/16 at 21:00; Stop 01/30/17 at 09:01 Calcium/Vitamin D (Oyster Shell/ Vit-D (500/200)) 1 tab DAILY PO Last administered on 01/07/17 08:28; Admin Dose 1 TAB; Start 01/01/17 at 09:00; Stop 01/30/17 at 09:01 Docusate Sodium (Colace) 100 mg BID PO Last administered on 01/07/17 08:28; Admin Dose 100 MG; Start 12/31/16 at 21:00 Acetaminophen (Tylenol Tab) 650 mg Q4H PRN PO PAIN; Start 12/31/16 at 19:30 Bisacodyl (Dulcolax Supp) 10 mg DAILY PRN [place] CONSTIPATION; Start 12/31/16 at 19 :30 Magnesium Hydroxide (Milk Of Mag) 30 ml BID PRN PO CONSTIPATION; Start at 19:30 Lactulose (Enulose) 20 gm DAILY PRN PO CONSTIPATION; Start 12/31/16 at 19:30 Ferrous Sulfate (Ferrous Sulfate (Ec)) 325 mg BID PO Last administered on 08:28; Admin Dose 325 MG; Start 01/02/17 at 21:00 Fish Oil (Fish Oil) 1,000 mg BID PO Last administered on 01/07/17 08:28; Admin Dose 1,000 MG; Start 01/02/17 at 21:00 Acetaminophen/ Hydrocodone Bitart ([place] (5/325)) 2 tab Q4 PRN PO SEVERE PAIN LEVEL 7-10 Last administered on 01/07/17 13:42; Admin Dose 2 TAB; Start 01/07/17 at 13:00 Assessment/Plan Chief Complaint/Hosp Course 1. Hip fracture: s/p ORIF on 12/28/2016. -Continue pain control. Outpatient follow-up with orthopedics in 2 weeks after discharge. -Continue multidisciplinary physical therapy and rehabilitation Continues aspirin orthopedics for DVT prophylaxis 2. History of Dyslipidemia. Stable. LDL 78 -Would not recommend statin with elevated LFTs. Stable lipid panel. -Fish oil 3. Hepatic steatosis. Stable. 4. COPD. Stable. -Continue home medications. Outpatient PFTs 5. Anemia with iron deficiency. Monitor H&H 6. Fungal uti dlflucan Problems: PATY CHRISTINA MD, [facility] Jan 07, 2017 15:46
[2017-01-07] MEDS: FLUCONAZOLE 200 MG TAB PO SCH (17:33)
[2017-01-07 20:00] VITALS: BP 95/52; RESP 18
[2017-01-08 02:00] VITALS: BP 103/52; RESP 18
[2017-01-08 08:00] VITALS: BP 95/49; RESP 18
[2017-01-08] MEDS: DOCUSATE SODIUM 100 MG CAP PO SCH ×2 (08:23→20:51)
[2017-01-08] MEDS: CALCIUM/VITAMIN D (500/200) TAB PO SCH (08:23)
[2017-01-08] MEDS: FISH OIL 1,000 MG CAP PO SCH ×2 (08:23→20:51)
[2017-01-08] MEDS: FLUCONAZOLE 200 MG TAB PO SCH (08:23)
[2017-01-08] MEDS: HYDROCODONE/APAP (5/325) TAB PO PRN ×4 (08:23→20:52)
[2017-01-08] MEDS: FERROUS SULFATE (EC) 325 MG TAB PO SCH ×2 (08:24→20:51)
[2017-01-08] MEDS: ASPIRIN (EC) 325 MG TAB PO SCH ×2 (08:24→20:51)
--- NOTE | 2017-01-08 10:54 | CONS ---
Date/Time of Note Date/Time of Note DATE: 01/08/17 TIME: 10:53 Consult Date/Type/Reason Admit Date/Time Dec 31, 2016 at 18:45 Type of Consultation: Im Subjective no new complaints Objective pulm-cta min assist ambulation 15 feet Vital Signs Date Time Temp Pulse Resp B/P Pulse Ox O2 Delivery O2 Flow Rate FiO2 01/08/17 08:00 98.8 77 18 95/49 99 01/07/17 05:30 Room Air Intake and Output 01/07/17 01/07/17 01/08/17 15:00 23:00 07:00 Intake Total 800 ml 400 ml 240 ml Output Total 600 ml 250 ml 502 ml Balance 200 ml 150 ml -262 ml Results/Medications Result Diagram: 01/06/1760501/06/17605 Medications Current Medications Aspirin (Ecotrin) 325 mg BID PO Last administered on 01/08/17 08:24; Admin Dose 325 MG; Start 12/31/16 at 21:00; Stop 01/30/17 at 09:01 Calcium/Vitamin D (Oyster Shell/ Vit-D (500/200)) 1 tab DAILY PO Last administered on 01/08/17 08:23; Admin Dose 1 TAB; Start 01/01/17 at 09:00; Stop 01/30/17 at 09:01 Docusate Sodium (Colace) 100 mg BID PO Last administered on 01/08/17 08:23; Admin Dose 100 MG; Start 12/31/16 at 21:00 Acetaminophen (Tylenol Tab) 650 mg Q4H PRN PO PAIN; Start 12/31/16 at 19:30 Bisacodyl (Dulcolax Supp) 10 mg DAILY PRN [place] CONSTIPATION; Start 12/31/16 at 19 :30 Magnesium Hydroxide (Milk Of Mag) 30 ml BID PRN PO CONSTIPATION; Start at 19:30 Lactulose (Enulose) 20 gm DAILY PRN PO CONSTIPATION; Start 12/31/16 at 19:30 Ferrous Sulfate (Ferrous Sulfate (Ec)) 325 mg BID PO Last administered on 08:24; Admin Dose 325 MG; Start 01/02/17 at 21:00 Fish Oil (Fish Oil) 1,000 mg BID PO Last administered on 01/08/17 08:23; Admin Dose 1,000 MG; Start 01/02/17 at 21:00 Acetaminophen/ Hydrocodone Bitart ([place] (5/325)) 2 tab Q4 PRN PO SEVERE PAIN LEVEL 7-10 Last administered on 01/08/17 08:23; Admin Dose 2 TAB; Start 01/07/17 at 13:00 Fluconazole (Diflucan) 200 mg DAILY PO Last administered on 01/08/17 08:23; Admin Dose 200 MG; Start 01/07/17 at 16:00 Assessment/Plan Additional Assessment/Plan Rehab- Left intertrochanteric hip fracture status post ORIF with cephalomedullary nailing. Continue rehab treatment plan. Patient progressing well Acute left shoulder tendinitis, status post fall- decreased pain - voiding Acute pain syndrome-improving Anemia. SHRAVAN PYLE MD Jan 08, 2017 10:54
[2017-01-08] MEDS: MONTELUKAST 10 MG TAB PO SCH (12:02)
--- NOTE | 2017-01-08 16:46 | CONS ---
Date/Time of Note Date/Time of Note DATE: 01/08/17 TIME: 16:45 Consult Date/Type/Reason Admit Date/Time Dec 31, 2016 at 18:45 Type of Consultation: Im Subjective Comfortable, continues PT. Objective Vital Signs Date Time Temp Pulse Resp B/P Pulse Ox O2 Delivery O2 Flow Rate FiO2 01/08/17 08:00 98.8 77 18 95/49 99 01/07/17 05:30 Room Air Intake and Output 01/07/17 01/07/17 01/08/17 15:00 23:00 07:00 Intake Total 800 ml 400 ml 240 ml Output Total 600 ml 250 ml 502 ml Balance 200 ml 150 ml -262 ml Exam GENERAL: Elderly lady appears comfortable at rest VITAL SIGNS: per chart NECK: Supple. No JVD or lymphadenopathy. CARDIAC EXAM: S1, S2. No added sounds or murmurs. CHEST: clear bilaterally, No added sounds, rales or wheezes ABDOMEN: Soft, nontender. No guarding or rebound. EXTREMITIES: No cyanosis, clubbing or edema. NEUROLOGIC: Generalized weakness. No focal deficits. Results/Medications Result Diagram: 01/06/1760501/06/17 06 Medications Current Medications Aspirin (Ecotrin) 325 mg BID PO Last administered on 01/08/17 08:24; Admin Dose 325 MG; Start 12/31/16 at 21:00; Stop 01/30/17 at 09:01 Calcium/Vitamin D (Oyster Shell/ Vit-D (500/200)) 1 tab DAILY PO Last administered on 01/08/17 08:23; Admin Dose 1 TAB; Start 01/01/17 at 09:00; Stop 01/30/17 at 09:01 Docusate Sodium (Colace) 100 mg BID PO Last administered on 01/08/17 08:23; Admin Dose 100 MG; Start 12/31/16 at 21:00 Acetaminophen (Tylenol Tab) 650 mg Q4H PRN PO PAIN; Start 12/31/16 at 19:30 Bisacodyl (Dulcolax Supp) 10 mg DAILY PRN [place] CONSTIPATION; Start 12/31/16 at 19 :30 Magnesium Hydroxide (Milk Of Mag) 30 ml BID PRN PO CONSTIPATION; Start at 19:30 Lactulose (Enulose) 20 gm DAILY PRN PO CONSTIPATION; Start 12/31/16 at 19:30 Ferrous Sulfate (Ferrous Sulfate (Ec)) 325 mg BID PO Last administered on 08:24; Admin Dose 325 MG; Start 01/02/17 at 21:00 Fish Oil (Fish Oil) 1,000 mg BID PO Last administered on 01/08/17 08:23; Admin Dose 1,000 MG; Start 01/02/17 at 21:00 Acetaminophen/ Hydrocodone Bitart ([place] (5/325)) 2 tab Q4 PRN PO SEVERE PAIN LEVEL 7-10 Last administered on 01/08/17 16:25; Admin Dose 2 TAB; Start 01/07/17 at 13:00 Fluconazole (Diflucan) 200 mg DAILY PO Last administered on 01/08/17 08:23; Admin Dose 200 MG; Start 01/07/17 at 16:00 Assessment/Plan Chief Complaint/Hosp Course 1. Hip fracture: s/p ORIF on 12/28/2016. -Continue pain control. Outpatient follow-up with orthopedics in 2 weeks after discharge. -Continue multidisciplinary physical therapy and rehabilitation Continues aspirin orthopedics for DVT prophylaxis 2. History of Dyslipidemia. Stable. LDL 78 -Would not recommend statin with elevated LFTs. Stable lipid panel. -Fish oil 3. Hepatic steatosis. Stable. 4. COPD. Stable. -Continue home medications. Outpatient PFTs 5. Anemia with iron deficiency. Monitor H&H 6. Fungal uti dlflucan Problems: PATY CHRISTINA MD, [facility] Jan 08, 2017 16:46
[2017-01-08 20:15] VITALS: BP 122/56; PULSE 83; RESP 20
--- NOTE | 2017-01-08 20:52 | CONS ---
DATE OF ADMISSION: 12/31/2016 DATE OF CONSULTATION: 01/08/2017 TYPE OF CONSULTATION: Type of consultation: Psychological. REFERRING PHYSICIAN: Pam Rios MD REASON FOR CONSULTATION: This consultation is requested by Dr. Vira Rios in order to evaluate the cognitive and emotional functioning of this patient related to her present medical condition. HISTORY OF PRESENT ILLNESS: The patient is an 81-year-old female. Patient sustained a fall, which resulted in a left hip fracture. Patient underwent left hip ORIF, with postoperative course notable for anemia, requiring transfusion. Patient was cleared medically and sent to the acute rehabilitation unit for acute multidisciplinary rehabilitation. FAMILY/SOCIAL HISTORY: The patient lives in a home with her . 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 She does want to return home after discharge. The patient states that she is going to have help from neighbors and her son and [id number] when she returns home. MEDICATION: The patient is currently not on any psychotropic medication. SUBSTANCE USE: The patient reports that she does not smoke. The patient reports that she does some light social drinking. MENTAL STATUS EXAMINATION: APPEARANCE: Patient was seen in her wheelchair. She is of average height and somewhat overweight. The patient is right- handed. BEHAVIOR: The patient was cooperative during the consultation. The patient did attempt to answer all questions presented to her by the interviewer. MOOD AND AFFECT: The patient's mood appears to be slightly depressed about all the situations currently at the present time because she says she is "usually upbeat." Patient's affect appears to be just slightly anxious. PERCEPTION: The patient reports no hallucinations or delusions. The patient was alert to person, place, situation, and time. MEMORY AND COGNITION: The patient's memory and cognition are intact. She was able to remember recent and remote events. Patient was able to say the name of the hospital. The patient was able to say the month and the year. The patient was able to say who the patternmaker apprentice metal is and who the governor of the state is. The patient could not say who the [facility] the [facility]. The patient was able to spell world backwards. The patient was able to do five serial 7 subtractions from 100 without making an error. Overall, for the patient's age and situation, her cognitions appear to be quite good. INTELLIGENCE: Appears to fall in the average to above average range. INSIGHT: Good. JUDGMENT: Good. THOUGHT CONTENT: The patient is concerned about her present medical condition. The patient is also concerned about how she is going to take care of her when she returns home. The patient is motivated to return home and continue to do what she was doing before, but she needs to be able to gain strength and recover from her fractured hip. Patient is aware that she is going to need some help when she returns home. DISCUSSION: The patient can likely benefit from some cognitive/behavioral psychotherapy while she is on the unit. The psychotherapy would focus on her underlying issues regarding her own medical issues but also how she deals with the stress of being the caregiver for her . 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 Thank you very much, Dr. Vira Rios, for referring this individual. Please do not hesitate to call if you have any additional questions. Dictated By: Osei Erickson, PHD /marixa/juan carlos /Document#: [id number]
[2017-01-09 07:30] VITALS: BP 98/53; RESP 18
[2017-01-09] MEDS: DOCUSATE SODIUM 100 MG CAP PO SCH ×2 (09:00→21:07)
[2017-01-09] MEDS: FLUCONAZOLE 200 MG TAB PO SCH (09:00)
[2017-01-09] MEDS: HYDROCODONE/APAP (5/325) TAB PO PRN (09:00)
[2017-01-09] MEDS: ASPIRIN (EC) 325 MG TAB PO SCH ×2 (09:00→21:07)
[2017-01-09] MEDS: CALCIUM/VITAMIN D (500/200) TAB PO SCH (09:00)
[2017-01-09] MEDS: FERROUS SULFATE (EC) 325 MG TAB PO SCH ×2 (09:00→21:07)
[2017-01-09] MEDS: FISH OIL 1,000 MG CAP PO SCH ×2 (09:01→21:07)
--- NOTE | 2017-01-09 11:32 | CONS ---
Date/Time of Note Date/Time of Note DATE: 01/09/17 TIME: 11:25 Consult Date/Type/Reason Admit Date/Time Dec 31, 2016 at 18:45 Type of Consultation: Im Subjective Comfortable. Objective Vital Signs Date Time Temp Pulse Resp B/P Pulse Ox O2 Delivery O2 Flow Rate FiO2 01/09/17 07:30 98.6 78 18 98/53 99 01/08/17 20:15 Room Air Intake and Output 01/08/17 01/08/17 01/09/17 15:00 23:00 07:00 Intake Total 800 ml 360 ml 360 ml Output Total 400 ml 200 ml 5 ml Balance 400 ml 160 ml 355 ml Exam GENERAL: Elderly lady appears comfortable at rest VITAL SIGNS: per chart NECK: Supple. No JVD or lymphadenopathy. CARDIAC EXAM: S1, S2. No added sounds or murmurs. CHEST: clear bilaterally, No added sounds, rales or wheezes ABDOMEN: Soft, nontender. No guarding or rebound. EXTREMITIES: No cyanosis, clubbing or edema. NEUROLOGIC: Generalized weakness. No focal deficits. Results/Medications Result Diagram: 01/06/17 0601/06/17 06 Medications Current Medications Aspirin (Ecotrin) 325 mg BID PO Last administered on 01/09/17 09:00; Admin Dose 325 MG; Start 12/31/16 at 21:00; Stop 01/30/17 at 09:01 Calcium/Vitamin D (Oyster Shell/ Vit-D (500/200)) 1 tab DAILY PO Last administered on 01/09/17 09:00; Admin Dose 1 TAB; Start 01/01/17 at 09:00; Stop 01/30/17 at 09:01 Docusate Sodium (Colace) 100 mg BID PO Last administered on 01/09/17 09:00; Admin Dose 100 MG; Start 12/31/16 at 21:00 Acetaminophen (Tylenol Tab) 650 mg Q4H PRN PO PAIN; Start 12/31/16 at 19:30 Bisacodyl (Dulcolax Supp) 10 mg DAILY PRN [place] CONSTIPATION; Start 12/31/16 at 19 :30 Magnesium Hydroxide (Milk Of Mag) 30 ml BID PRN PO CONSTIPATION; Start at 19:30 Lactulose (Enulose) 20 gm DAILY PRN PO CONSTIPATION; Start 12/31/16 at 19:30 Ferrous Sulfate (Ferrous Sulfate (Ec)) 325 mg BID PO Last administered on 09:00; Admin Dose 325 MG; Start 01/02/17 at 21:00 Fish Oil (Fish Oil) 1,000 mg BID PO Last administered on 01/09/17 09:01; Admin Dose 1,000 MG; Start 01/02/17 at 21:00 Acetaminophen/ Hydrocodone Bitart ([place] (5/325)) 2 tab Q4 PRN PO SEVERE PAIN LEVEL 7-10 Last administered on 01/09/17 09:00; Admin Dose 2 TAB; Start 01/07/17 at 13:00 Fluconazole (Diflucan) 200 mg DAILY PO Last administered on 01/09/17 09:00; Admin Dose 200 MG; Start 01/07/17 at 16:00 Assessment/Plan Chief Complaint/Hosp Course 1. Hip fracture: s/p ORIF on 12/28/2016. -Continue pain control. Outpatient follow-up with orthopedics in 2 weeks after discharge. -Continue multidisciplinary physical therapy and rehabilitation Continues aspirin orthopedics for DVT prophylaxis 2. History of Dyslipidemia. Stable. LDL 78 -Would not recommend statin with elevated LFTs. Stable lipid panel. -Fish oil 3. Hepatic steatosis. Stable. 4. COPD. Stable. -Continue home medications. Outpatient PFTs 5. Anemia with iron deficiency. Monitor H&H 6. Fungal uti dlflucan repeat labs. Problems: PATY CHRISTINA MD, [facility] Jan 09, 2017 11:32
--- NOTE | 2017-01-09 11:42 | CONS ---
Date/Time of Note Date/Time of Note DATE: 01/09/17 TIME: 11:41 Consult Date/Type/Reason Admit Date/Time Dec 31, 2016 at 18:45 Type of Consultation: Im Subjective Noted a healing bruise on Left elbow region Objective pulm-cta abd-soft L UE- resovling echymosis at elbow region Vital Signs Date Time Temp Pulse Resp B/P Pulse Ox O2 Delivery O2 Flow Rate FiO2 01/09/17 07:30 98.6 78 18 98/53 99 01/08/17 20:15 Room Air Intake and Output 01/08/17 01/08/17 01/09/17 15:00 23:00 07:00 Intake Total 800 ml 360 ml 360 ml Output Total 400 ml 200 ml 5 ml Balance 400 ml 160 ml 355 ml Results/Medications Result Diagram: 01/06/1760501/06/17 06 Medications Current Medications Aspirin (Ecotrin) 325 mg BID PO Last administered on 01/09/17 09:00; Admin Dose 325 MG; Start 12/31/16 at 21:00; Stop 01/30/17 at 09:01 Calcium/Vitamin D (Oyster Shell/ Vit-D (500/200)) 1 tab DAILY PO Last administered on 01/09/17 09:00; Admin Dose 1 TAB; Start 01/01/17 at 09:00; Stop 01/30/17 at 09:01 Docusate Sodium (Colace) 100 mg BID PO Last administered on 01/09/17 09:00; Admin Dose 100 MG; Start 12/31/16 at 21:00 Acetaminophen (Tylenol Tab) 650 mg Q4H PRN PO PAIN; Start 12/31/16 at 19:30 Bisacodyl (Dulcolax Supp) 10 mg DAILY PRN [place] CONSTIPATION; Start 12/31/16 at 19 :30 Magnesium Hydroxide (Milk Of Mag) 30 ml BID PRN PO CONSTIPATION; Start at 19:30 Lactulose (Enulose) 20 gm DAILY PRN PO CONSTIPATION; Start 12/31/16 at 19:30 Ferrous Sulfate (Ferrous Sulfate (Ec)) 325 mg BID PO Last administered on 09:00; Admin Dose 325 MG; Start 01/02/17 at 21:00 Fish Oil (Fish Oil) 1,000 mg BID PO Last administered on 01/09/17 09:01; Admin Dose 1,000 MG; Start 01/02/17 at 21:00 Acetaminophen/ Hydrocodone Bitart ([place] (5/325)) 2 tab Q4 PRN PO SEVERE PAIN LEVEL 7-10 Last administered on 01/09/17 09:00; Admin Dose 2 TAB; Start 01/07/17 at 13:00 Fluconazole (Diflucan) 200 mg DAILY PO Last administered on 01/09/17 09:00; Admin Dose 200 MG; Start 01/07/17 at 16:00 Assessment/Plan Additional Assessment/Plan Rehab- Left intertrochanteric hip fracture status post ORIF with cephalomedullary nailing. Continue rehab activities LUE- likely from intial fall, but will obtain xray Acute left shoulder tendinitis, status post fall- decreased pain - voiding Acute pain syndrome-improving Anemia. SHRAVAN PYLE MD Jan 09, 2017 11:42
[2017-01-09] MEDS: MONTELUKAST 10 MG TAB PO SCH (13:24)
[2017-01-09 14:00] VITALS: BP 108/54; RESP 18
[2017-01-09 20:18] VITALS: BP 127/57; RESP 18
--- NOTE | 2017-01-09 23:04 | RADRPT ---
PROCEDURE: XR Elbow. CLINICAL INDICATION: left elbow pain hematoma TECHNIQUE: AP, lateral and oblique views of the left elbow performed. COMPARISON: None. FINDINGS: There is normal mineralization and alignment. No fracture or osseous lesion is identified. There are normal joints without evidence of arthritis or effusion. The soft tissues are unremarkable. IMPRESSION: Unremarkable examination. No visualized fracture or dislocation. RPTAT: HBST .Jose Villarreal MD, MD Date Time Electronically viewed and signed by .Jose Villarreal MD, on 01/09/2017 23:03 .T/
[2017-01-10 02:12] VITALS: BP 118/55; RESP 18
[2017-01-10] MEDS: HYDROCODONE/APAP (5/325) TAB PO PRN ×3 (06:19→18:53)
[2017-01-10 07:30] VITALS: BP 109/55; RESP 18
[2017-01-10 07:36] LABS: BASOPHILS % 0.4 % (0.0-2.0); EOSINOPHILS # 0.1 10^3/ul (0.0-0.5); EOSINOPHILS % 1.7 % (0.0-7.0); HEMOGLOBIN 9.1 g/dl (12.0-16.0); LYMPHOCYTES # 1.8 10^3/ul (0.8-2.9); LYMPHOCYTES % 23.4 % (15.0-51.0); MEAN CORPUSCULAR HEMOGLOBIN 30.7 pg (29.0-33.0); MEAN CORPUSCULAR HGB CONC 32.5 g/dl (32.0-37.0); MEAN CORPUSCULAR VOLUME 94.6 fl (82.0-101.0); MEAN PLATELET VOLUME 9.4 fl (7.4-10.4); MONOCYTE # 0.6 10^3/ul (0.3-0.9); MONOCYTES % 8.3 % (0.0-11.0); NEUTROPHILS % 64.9 % (39.0-77.0); PLATELET COUNT 331 10^3/UL (140-415); RED BLOOD COUNT 2.96 10^6/ul (4.20-5.40); RED CELL DISTRIBUTION WIDTH 15.6 % (11.5-14.5); WHITE BLOOD COUNT 7.5 10^3/ul (4.8-10.8)
[2017-01-10 08:14] LABS: CALCIUM 8.8 mg/dl (8.4-10.2); CREATININE 0.74 mg/dl (0.44-1.00); MAGNESIUM 2.3 mg/dl (1.7-2.5); POTASSIUM 4.3 mmol/L (3.5-5.1)
[2017-01-10] MEDS: FLUCONAZOLE 200 MG TAB PO SCH (08:38)
[2017-01-10] MEDS: FISH OIL 1,000 MG CAP PO SCH ×2 (08:38→20:29)
[2017-01-10 08:39] LABS: PHOSPHORUS 3.8 mg/dl (2.5-4.9)
[2017-01-10] MEDS: FERROUS SULFATE (EC) 325 MG TAB PO SCH ×2 (08:39→20:29)
[2017-01-10] MEDS: CALCIUM/VITAMIN D (500/200) TAB PO SCH (08:39)
[2017-01-10] MEDS: ASPIRIN (EC) 325 MG TAB PO SCH ×2 (08:39→20:29)
[2017-01-10] MEDS: DOCUSATE SODIUM 100 MG CAP PO SCH ×2 (08:39→20:29)
--- NOTE | 2017-01-10 10:30 | CONS ---
Date/Time of Note Date/Time of Note DATE: 01/10/17 TIME: 10:28 Consult Date/Type/Reason Admit Date/Time Dec 31, 2016 at 18:45 Type of Consultation: Im Subjective Comfortable Objective pulm-cta abd-soft min assist ambulation L elbow Xray- unremarkable Vital Signs Date Time Temp Pulse Resp B/P Pulse Ox O2 Delivery O2 Flow Rate FiO2 01/10/17 07:30 98.3 74 18 109/55 97 01/08/17 20:15 Room Air Intake and Output 01/09/17 01/09/17 01/10/17 15:00 23:00 07:00 Intake Total 1400 ml 900 ml Output Total 900 ml Balance 1400 ml 0 ml Results/Medications Result Diagram: 01/10/17 0616 01/10/17 0616 Results 24 hrs Laboratory Tests Test 01/10/17 06:16 White Blood Count 7.5 Red Blood Count 2.96 L Hemoglobin 9.1 L Hematocrit 28.0 L Mean Corpuscular Volume 94.6 Mean Corpuscular Hemoglobin 30.7 Mean Corpuscular Hemoglobin Concent 32.5 Red Cell Distribution Width 15.6 H Platelet Count 331 # Mean Platelet Volume 9.4 Neutrophils % 64.9 Lymphocytes % 23.4 Monocytes % 8.3 Eosinophils % 1.7 Basophils % 0.4 Nucleated Red Blood Cells % 0.0 Neutrophils # (Manual) 4.9 Lymphocytes # 1.8 Monocytes # 0.6 Eosinophils # 0.1 Basophils # 0.0 Nucleated Red Blood Cells # 0.0 Sodium Level 137 Potassium Level 4.3 Chloride Level 105 Carbon Dioxide Level 27 Anion Gap 9 Blood Urea Nitrogen 18 Creatinine 0.74 Glucose Level 92 Calcium Level 8.8 Phosphorus Level 3.8 Magnesium Level 2.3 Medications Current Medications Aspirin (Ecotrin) 325 mg BID PO Last administered on 01/10/17 08:39; Admin Dose 325 MG; Start 12/31/16 at 21:00; Stop 01/30/17 at 09:01 Calcium/Vitamin D (Oyster Shell/ Vit-D (500/200)) 1 tab DAILY PO Last administered on 01/10/17 08:39; Admin Dose 1 TAB; Start 01/01/17 at 09:00; Stop 01/30/17 at 09:01 Docusate Sodium (Colace) 100 mg BID PO Last administered on 01/10/17 08:39; Admin Dose 100 MG; Start 12/31/16 at 21:00 Acetaminophen (Tylenol Tab) 650 mg Q4H PRN PO PAIN; Start 12/31/16 at 19:30 Bisacodyl (Dulcolax Supp) [address] [place] CONSTIPATION; Start 12/31/16 at 19 :30 Magnesium Hydroxide (Milk Of Mag) 30 ml BID PRN PO CONSTIPATION; Start at 19:30 Lactulose (Enulose) 20 gm DAILY PRN PO CONSTIPATION; Start 12/31/16 at 19:30 Ferrous Sulfate (Ferrous Sulfate (Ec)) 325 mg BID PO Last administered on 08:39; Admin Dose 325 MG; Start 01/02/17 at 21:00 Fish Oil (Fish Oil) 1,000 mg BID PO Last administered on 01/10/17 08:38; Admin Dose 1,000 MG; Start 01/02/17 at 21:00 Acetaminophen/ Hydrocodone Bitart ([place] (5/325)) 2 tab Q4 PRN PO SEVERE PAIN LEVEL 7-10 Last administered on 01/10/17 06:19; Admin Dose 2 TAB; Start 01/07/17 at 13:00 Fluconazole (Diflucan) 200 mg DAILY PO Last administered on 01/10/17 08:38; Admin Dose 200 MG; Start 01/07/17 at 16:00 Assessment/Plan Additional Assessment/Plan Rehab- Left intertrochanteric hip fracture status post ORIF with cephalomedullary nailing. Continue rehab activities Acute left shoulder tendinitis, status post fall- decreased pain; Left elbow Xray- unremarkable - voiding Acute pain syndrome-improving Anemia. SHRAVAN PYLE MD Jan 10, 2017 10:29
[2017-01-10] MEDS: MONTELUKAST 10 MG TAB PO SCH (12:11)
[2017-01-10 14:00] VITALS: BP 109/49; RESP 18
--- NOTE | 2017-01-10 14:57 | CONS ---
Date/Time of Note Date/Time of Note DATE: 01/10/17 TIME: 14:55 Consult Date/Type/Reason Admit Date/Time Dec 31, 2016 at 18:45 Type of Consultation: Im Subjective Remains comfortable, no events. Objective Vital Signs Date Time Temp Pulse Resp B/P Pulse Ox O2 Delivery O2 Flow Rate FiO2 01/10/17 07:30 98.3 74 18 109/55 97 01/08/17 20:15 Room Air Intake and Output 01/09/17 01/09/17 01/10/17 14:59 22:59 06:59 Intake Total 1400 ml 900 ml Output Total 900 ml Balance 1400 ml 0 ml Exam GENERAL: Elderly lady appears comfortable at rest VITAL SIGNS: per chart NECK: Supple. No JVD or lymphadenopathy. CARDIAC EXAM: S1, S2. No added sounds or murmurs. CHEST: clear bilaterally, No added sounds, rales or wheezes ABDOMEN: Soft, nontender. No guarding or rebound. EXTREMITIES: No cyanosis, clubbing or edema. NEUROLOGIC: Generalized weakness. No focal deficits. Results/Medications Result Diagram: 01/10/17 0616 01/10/17 0616 Results 24 hrs Laboratory Tests Test 01/10/17 06:16 White Blood Count 7.5 Red Blood Count 2.96 L Hemoglobin 9.1 L Hematocrit 28.0 L Mean Corpuscular Volume 94.6 Mean Corpuscular Hemoglobin 30.7 Mean Corpuscular Hemoglobin Concent 32.5 Red Cell Distribution Width 15.6 H Platelet Count 331 # Mean Platelet Volume 9.4 Neutrophils % 64.9 Lymphocytes % 23.4 Monocytes % 8.3 Eosinophils % 1.7 Basophils % 0.4 Nucleated Red Blood Cells % 0.0 Neutrophils # (Manual) 4.9 Lymphocytes # 1.8 Monocytes # 0.6 Eosinophils # 0.1 Basophils # 0.0 Nucleated Red Blood Cells # 0.0 Sodium Level 137 Potassium Level 4.3 Chloride Level 105 Carbon Dioxide Level 27 Anion Gap 9 Blood Urea Nitrogen 18 Creatinine 0.74 Glucose Level 92 Calcium Level 8.8 Phosphorus Level 3.8 Magnesium Level 2.3 Medications Current Medications Aspirin (Ecotrin) 325 mg BID PO Last administered on 01/10/17t 08:39; Admin Dose 325 MG; Start 12/31/16 at 21:00; Stop 01/30/17 at 09:01 Calcium/Vitamin D (Oyster Shell/ Vit-D (500/200)) 1 tab DAILY PO Last administered on 01/10/17 08:39; Admin Dose 1 TAB; Start 01/01/17 at 09:00; Stop 01/30/17 at 09:01 Docusate Sodium (Colace) 100 mg BID PO Last administered on 01/10/17 08:39; Admin Dose 100 MG; Start 12/31/16 at 21:00 Acetaminophen (Tylenol Tab) 650 mg Q4H PRN PO PAIN; Start 12/31/16 at 19:30 Bisacodyl (Dulcolax Supp) 10 mg DAILY PRN [place] CONSTIPATION; Start 12/31/16 at 19 :30 Magnesium Hydroxide (Milk Of Mag) 30 ml BID PRN PO CONSTIPATION; Start at 19:30 Lactulose (Enulose) 20 gm DAILY PRN PO CONSTIPATION; Start 12/31/16 at 19:30 Ferrous Sulfate (Ferrous Sulfate (Ec)) 325 mg BID PO Last administered on 08:39; Admin Dose 325 MG; Start 01/02/17 at 21:00 Fish Oil (Fish Oil) 1,000 mg BID PO Last administered on 01/10/17 08:38; Admin Dose 1,000 MG; Start 01/02/17 at 21:00 Acetaminophen/ Hydrocodone Bitart ([place] (5/325)) 2 tab Q4 PRN PO SEVERE PAIN LEVEL 7-10 Last administered on 01/10/17 12:11; Admin Dose 2 TAB; Start 01/07/17 at 13:00 Fluconazole (Diflucan) 200 mg DAILY PO Last administered on 01/10/17 08:38; Admin Dose 200 MG; Start 01/07/17 at 16:00 Assessment/Plan Chief Complaint/Hosp Course 1. Hip fracture: s/p ORIF on 12/28/2016. -Continue pain control. Outpatient follow-up with orthopedics in 2 weeks after discharge. -Continue multidisciplinary physical therapy and rehabilitation Continues aspirin orthopedics for DVT prophylaxis 2. History of Dyslipidemia. Stable. LDL 78 -Would not recommend statin with elevated LFTs. Stable lipid panel. -Fish oil 3. Hepatic steatosis. Stable. 4. COPD. Stable. -Continue home medications. Outpatient PFTs 5. Anemia with iron deficiency. Monitor H&H 6. Fungal uti dlflucan repeat labs stable increased Hb. Problems: [facility]STINA [facility], [facility] Jan 10, 2017 14:57
[2017-01-10 20:00] VITALS: BP 98/58; RESP 18
[2017-01-11 02:00] VITALS: BP 110/55; RESP 18
[2017-01-11 08:00] VITALS: BP 105/55; RESP 18
[2017-01-11] MEDS: ASPIRIN (EC) 325 MG TAB PO SCH ×2 (08:46→20:10)
[2017-01-11] MEDS: FLUCONAZOLE 200 MG TAB PO SCH (08:46)
[2017-01-11] MEDS: FISH OIL 1,000 MG CAP PO SCH ×2 (08:46→20:10)
[2017-01-11] MEDS: CALCIUM/VITAMIN D (500/200) TAB PO SCH (08:46)
[2017-01-11] MEDS: FERROUS SULFATE (EC) 325 MG TAB PO SCH ×2 (08:46→20:10)
[2017-01-11] MEDS: DOCUSATE SODIUM 100 MG CAP PO SCH ×2 (08:47→20:10)
[2017-01-11] MEDS: HYDROCODONE/APAP (5/325) TAB PO PRN (08:47)
--- NOTE | 2017-01-11 11:53 | CONS ---
Date/Time of Note Date/Time of Note DATE: 01/11/17 TIME: 11:51 Consult Date/Type/Reason Admit Date/Time Dec 31, 2016 at 18:45 Type of Consultation: Im Subjective Patient motivated in good spirits Objective Clear abdomen soft Contact guard assist 30 feet Vital Signs Date Time Temp Pulse Resp B/P Pulse Ox O2 Delivery O2 Flow Rate FiO2 01/11/17 08:00 98.2 77 18 105/55 97 01/08/17 20:15 Room Air Intake and Output 01/10/17 01/10/17 01/11/17 15:00 23:00 07:00 Intake Total 1200 ml 850 ml Output Total 1 ml 800 ml Balance 1199 ml 50 ml Results/Medications Result Diagram: 01/10/1716 01/10/17 0616 Medications Current Medications Aspirin (Ecotrin) 325 mg BID PO Last administered on 01/11/17 08:46; Admin Dose 325 MG; Start 12/31/16 at 21:00; Stop 01/30/17 at 09:01 Calcium/Vitamin D (Oyster Shell/ Vit-D (500/200)) 1 tab DAILY PO Last administered on 01/11/17 08:46; Admin Dose 1 TAB; Start 01/01/17 at 09:00; Stop 01/30/17 at 09:01 Docusate Sodium (Colace) 100 mg BID PO Last administered on 01/11/17 08:47; Admin Dose 100 MG; Start 12/31/16 at 21:00 Acetaminophen (Tylenol Tab) 650 mg Q4H PRN PO PAIN; Start 12/31/16 at 19:30 Bisacodyl (Dulcolax Supp) 10 mg DAILY PRN [place] CONSTIPATION; Start 12/31/16 at 19 :30 Magnesium Hydroxide (Milk Of Mag) 30 ml BID PRN PO CONSTIPATION; Start at 19:30 Lactulose (Enulose) 20 gm DAILY PRN PO CONSTIPATION; Start 12/31/16 at 19:30 Ferrous Sulfate (Ferrous Sulfate (Ec)) 325 mg BID PO Last administered on 08:46; Admin Dose 325 MG; Start 01/02/17 at 21:00 Fish Oil (Fish Oil) 1,000 mg BID PO Last administered on 01/11/17 08:46; Admin Dose 1,000 MG; Start 01/02/17 at 21:00 Acetaminophen/ Hydrocodone Bitart ([place] (5/325)) 2 tab Q4 PRN PO SEVERE PAIN LEVEL 7-10 Last administered on 01/11/17 08:47; Admin Dose 2 TAB; Start 01/07/17 at 13:00 Fluconazole (Diflucan) 200 mg DAILY PO Last administered on 01/11/17 08:46; Admin Dose 200 MG; Start 01/07/17 at 16:00 Assessment/Plan Additional Assessment/Plan Rehab- Left intertrochanteric hip fracture status post ORIF with cephalomedullary nailing. Continue rehab disciplinary treatment plan Acute left shoulder tendinitis, L elbow contusion - voiding Acute pain syndrome-improving Anemia. SHRAVAN PYLE MD Jan 11, 2017 11:52
--- NOTE | 2017-01-11 12:02 | CONS ---
Date/Time of Note Date/Time of Note DATE: 01/11/17 TIME: 12:01 Consult Date/Type/Reason Admit Date/Time Dec 31, 2016 at 18:45 Type of Consultation: Im Subjective Comfortable. Objective Vital Signs Date Time Temp Pulse Resp B/P Pulse Ox O2 Delivery O2 Flow Rate FiO2 01/11/17 08:00 98.2 77 18 105/55 97 01/08/17 20:15 Room Air Intake and Output 01/10/17 01/10/17 01/11/17 15:00 23:00 07:00 Intake Total 1200 ml 850 ml Output Total 1 ml 800 ml Balance 1199 ml 50 ml Exam GENERAL: Elderly lady appears comfortable at rest VITAL SIGNS: per chart NECK: Supple. No JVD or lymphadenopathy. CARDIAC EXAM: S1, S2. No added sounds or murmurs. CHEST: clear bilaterally, No added sounds, rales or wheezes ABDOMEN: Soft, nontender. No guarding or rebound. EXTREMITIES: No cyanosis, clubbing or edema. NEUROLOGIC: Generalized weakness. No focal deficits. Results/Medications Result Diagram: 01/10/17 0616 01/10/17 0616 Medications Current Medications Aspirin (Ecotrin) 325 mg BID PO Last administered on 01/11/17 08:46; Admin Dose 325 MG; Start 12/31/16 at 21:00; Stop 01/30/17 at 09:01 Calcium/Vitamin D (Oyster Shell/ Vit-D (500/200)) 1 tab DAILY PO Last administered on 01/11/17 08:46; Admin Dose 1 TAB; Start 01/01/17 at 09:00; Stop 01/30/17 at 09:01 Docusate Sodium (Colace) 100 mg BID PO Last administered on 01/11/17 08:47; Admin Dose 100 MG; Start 12/31/16 at 21:00 Acetaminophen (Tylenol Tab) 650 mg Q4H PRN PO PAIN; Start 12/31/16 at 19:30 Bisacodyl (Dulcolax Supp) 10 mg DAILY PRN [place] CONSTIPATION; Start 12/31/16 at 19 :30 Magnesium Hydroxide (Milk Of Mag) 30 ml BID PRN PO CONSTIPATION; Start at 19:30 Lactulose (Enulose) 20 gm DAILY PRN PO CONSTIPATION; Start 8/29/17 at 19:30 Ferrous Sulfate (Ferrous Sulfate (Ec)) 325 mg BID PO Last administered on 08:46; Admin Dose 325 MG; Start 01/02/17 at 21:00 Fish Oil (Fish Oil) 1,000 mg BID PO Last administered on 01/11/17 08:46; Admin Dose 1,000 MG; Start 01/02/17 at 21:00 Acetaminophen/ Hydrocodone Bitart ([place] (5/325)) 2 tab Q4 PRN PO SEVERE PAIN LEVEL 7-10 Last administered on 01/11/17 08:47; Admin Dose 2 TAB; Start 01/07/17 at 13:00 Fluconazole (Diflucan) 200 mg DAILY PO Last administered on 01/11/17 08:46; Admin Dose 200 MG; Start 01/07/17 at 16:00 Assessment/Plan Chief Complaint/Hosp Course 1. Hip fracture: s/p ORIF on 12/28/2016. -Continue pain control. Outpatient follow-up with orthopedics in 2 weeks after discharge. -Continue multidisciplinary physical therapy and rehabilitation Continues aspirin orthopedics for DVT prophylaxis 2. History of Dyslipidemia. Stable. LDL 78 -Would not recommend statin with elevated LFTs. Stable lipid panel. -Fish oil 3. Hepatic steatosis. Stable. 4. COPD. Stable. -Continue home medications. Outpatient PFTs 5. Anemia with iron deficiency. Monitor H&H 6. Fungal uti s/p diflucan. Problems: [facility] Jan 11, 2017 12:02
[2017-01-11] MEDS: MONTELUKAST 10 MG TAB PO SCH (12:48)
[2017-01-11 20:22] VITALS: BP 102/57; RESP 18
[2017-01-12 02:00] VITALS: BP 110/61; RESP 18
[2017-01-12] MEDS: FERROUS SULFATE (EC) 325 MG TAB PO SCH ×2 (09:05→20:27)
[2017-01-12] MEDS: FLUCONAZOLE 200 MG TAB PO SCH (09:05)
[2017-01-12] MEDS: DOCUSATE SODIUM 100 MG CAP PO SCH ×2 (09:05→20:27)
[2017-01-12] MEDS: CALCIUM/VITAMIN D (500/200) TAB PO SCH (09:05)
[2017-01-12] MEDS: ASPIRIN (EC) 325 MG TAB PO SCH ×2 (09:05→20:27)
[2017-01-12] MEDS: FISH OIL 1,000 MG CAP PO SCH ×2 (09:05→20:27)
[2017-01-12] MEDS: MONTELUKAST 10 MG TAB PO SCH (12:30)
[2017-01-12] MEDS: HYDROCODONE/APAP (5/325) TAB PO PRN (13:57)
[2017-01-12 16:37] VITALS: BP 104/56; RESP 18
[2017-01-12 19:39] VITALS: BP 96/55; RESP 18
[2017-01-13 02:00] VITALS: BP 108/57; RESP 18
[2017-01-13 07:30] VITALS: BP 115/52; RESP 18
[2017-01-13] MEDS: ASPIRIN (EC) 325 MG TAB PO SCH ×2 (08:51→20:29)
[2017-01-13] MEDS: HYDROCODONE/APAP (5/325) TAB PO PRN ×2 (08:51→13:30)
[2017-01-13] MEDS: FERROUS SULFATE (EC) 325 MG TAB PO SCH ×2 (08:51→20:29)
[2017-01-13] MEDS: DOCUSATE SODIUM 100 MG CAP PO SCH ×2 (08:52→20:29)
[2017-01-13] MEDS: FLUCONAZOLE 200 MG TAB PO SCH (08:52)
[2017-01-13] MEDS: CALCIUM/VITAMIN D (500/200) TAB PO SCH (08:52)
[2017-01-13] MEDS: FISH OIL 1,000 MG CAP PO SCH ×2 (08:52→20:29)
--- NOTE | 2017-01-13 11:43 | CONS ---
Date/Time of Note Date/Time of Note DATE: 01/13/17 TIME: 11:41 Consult Date/Type/Reason Admit Date/Time Dec 31, 2016 at 18:45 Type of Consultation: Im Objective Vital Signs Date Time Temp Pulse Resp B/P Pulse Ox O2 Delivery O2 Flow Rate FiO2 01/13/17 07:30 98.3 84 18 115/52 94 Intake and Output 01/12/17 01/12/17 01/13/17 14:59 22:59 06:59 Intake Total 720 ml Output Total 600 ml 850 ml Balance 120 ml -850 ml INTERDISCIPLINARY TEAM CONFERENCE BOWEL- Cont BLADDER-Cont SKIN- intact OT- DRESSING-s/sba BATHING-s/sba TOILETING-sba PT- BED MOBILITY-sba TRANSFERS-sba AMBULATION-sba 30 A/P- Interdisciplinary team conference held today. Please see interdisciplinary sheet. Working toward d.c. on 01/15 with post discharge follow up of physical therapy, occupational therapy. Results/Medications Result Diagram: 01/10/17 0616 01/10/17 0616 Medications Current Medications Aspirin (Ecotrin) 325 mg BID PO Last administered on 01/13/17 08:51; Admin Dose 325 MG; Start 12/31/16 at 21:00; Stop 01/30/17 at 09:01 Calcium/Vitamin D (Oyster Shell/ Vit-D (500/200)) 1 tab DAILY PO Last administered on 01/13/17 08:52; Admin Dose 1 TAB; Start 01/01/17 at 09:00; Stop 01/30/17 at 09:01 Docusate Sodium (Colace) 100 mg BID PO Last administered on 01/13/17 08:52; Admin Dose 100 MG; Start 12/31/16 at 21:00 Acetaminophen (Tylenol Tab) 650 mg Q4H PRN PO PAIN; Start 12/31/16 at 19:30 Bisacodyl (Dulcolax Supp) 10 mg DAILY PRN [place] CONSTIPATION; Start 12/31/16 at 19 :30 Magnesium Hydroxide (Milk Of Mag) 30 ml BID PRN PO CONSTIPATION; Start at 19:30 Lactulose (Enulose) 20 gm DAILY PRN PO CONSTIPATION; Start 12/31/16 at 19:30 Ferrous Sulfate (Ferrous Sulfate (Ec)) 325 mg BID PO Last administered on 08:51; Admin Dose 325 MG; Start 01/02/17 at 21:00 Fish Oil (Fish Oil) 1,000 mg BID PO Last administered on 01/13/17 08:52; Admin Dose 1,000 MG; Start 01/02/17 at 21:00 Acetaminophen/ Hydrocodone Bitart ([place] (5/325)) 2 tab Q4 PRN PO SEVERE PAIN LEVEL 7-10 Last administered on 01/13/17 08:51; Admin Dose 2 TAB; Start at 13:00 Fluconazole (Diflucan) 200 mg DAILY PO Last administered on 01/13/17 08:52; Admin Dose 200 MG; Start 01/07/17 at 16:00 SHRAVAN PYLE MD Jan 13, 2017 11:43
[2017-01-13] MEDS: MONTELUKAST 10 MG TAB PO SCH (12:33)
--- NOTE | 2017-01-13 12:36 | CONS ---
Date/Time of Note Date/Time of Note DATE: 01/13/17 TIME: 12:35 Consult Date/Type/Reason Admit Date/Time Dec 31, 2016 at 18:45 Type of Consultation: Im Subjective Patient comfortable this morning. About to start therapy. Objective Vital Signs Date Time Temp Pulse Resp B/P Pulse Ox O2 Delivery O2 Flow Rate FiO2 01/13/17 07:30 98.3 84 18 115/52 94 Intake and Output 01/12/17 01/12/17 01/13/17 15:00 23:00 07:00 Intake Total 720 ml Output Total 600 ml 850 ml Balance 120 ml -850 ml Exam GENERAL: Elderly lady appears comfortable at rest VITAL SIGNS: per chart NECK: Supple. No JVD or lymphadenopathy. CARDIAC EXAM: S1, S2. No added sounds or murmurs. CHEST: clear bilaterally, No added sounds, rales or wheezes ABDOMEN: Soft, nontender. No guarding or rebound. EXTREMITIES: No cyanosis, clubbing or edema. NEUROLOGIC: Generalized weakness. No focal deficits. Results/Medications Result Diagram: 01/10/1716 01/10/17 0616 Medications Current Medications Aspirin (Ecotrin) 325 mg BID PO Last administered on 01/13/17 08:51; Admin Dose 325 MG; Start 12/31/16 at 21:00; Stop 01/30/17 at 09:01 Calcium/Vitamin D (Oyster Shell/ Vit-D (500/200)) 1 tab DAILY PO Last administered on 01/13/17 08:52; Admin Dose 1 TAB; Start 01/01/17 at 09:00; Stop 01/30/17 at 09:01 Docusate Sodium (Colace) 100 mg BID PO Last administered on 01/13/17 08:52; Admin Dose 100 MG; Start 12/31/16 at 21:00 Acetaminophen (Tylenol Tab) 650 mg Q4H PRN PO PAIN; Start 12/31/16 at 19:30 Bisacodyl (Dulcolax Supp) 10 mg DAILY PRN [place] CONSTIPATION; Start 12/31/16 at 19 :30 Magnesium Hydroxide (Milk Of Mag) 30 ml BID PRN PO CONSTIPATION; Start at 19:30 Lactulose (Enulose) 20 gm DAILY PRN PO CONSTIPATION; Start 12/31/16 at 19:30 Ferrous Sulfate (Ferrous Sulfate (Ec)) 325 mg BID PO Last administered on 08:51; Admin Dose 325 MG; Start 01/02/17 at 21:00 Fish Oil (Fish Oil) 1,000 mg BID PO Last administered on 01/13/17 08:52; Admin Dose 1,000 MG; Start 01/02/17 at 21:00 Acetaminophen/ Hydrocodone Bitart ([place] (5/325)) 2 tab Q4 PRN PO SEVERE PAIN LEVEL 7-10 Last administered on 01/13/17 08:51; Admin Dose 2 TAB; Start at 13:00 Fluconazole (Diflucan) 200 mg DAILY PO Last administered on 01/13/17 08:52; Admin Dose 200 MG; Start 01/07/17 at 16:00 Assessment/Plan Chief Complaint/Hosp Course 1. Hip fracture: s/p ORIF on 12/28/2016. -Continue pain control. Outpatient follow-up with orthopedics in 2 weeks after discharge. -Continue multidisciplinary physical therapy and rehabilitation Continues aspirin orthopedics for DVT prophylaxis 2. History of Dyslipidemia. Stable. LDL 78 -Would not recommend statin with elevated LFTs. Stable lipid panel. -Fish oil 3. Hepatic steatosis. Stable. 4. COPD. Stable. -Continue home medications. Outpatient PFTs 5. Anemia with iron deficiency. Monitor H&H 6. Fungal uti s/p diflucan. Problems: PATY CHRISTINA MD, [facility] Jan 13, 2017 12:36
[2017-01-13 20:00] VITALS: BP 96/54; RESP 20
[2017-01-14 02:25] VITALS: BP 112/62; RESP 18
[2017-01-14] MEDS: HYDROCODONE/APAP (5/325) TAB PO PRN ×2 (07:28→11:36)
[2017-01-14 08:01] VITALS: BP 108/64; PULSE 61; RESP 20
[2017-01-14] MEDS: ASPIRIN (EC) 325 MG TAB PO SCH ×2 (08:55→22:13)
[2017-01-14] MEDS: CALCIUM/VITAMIN D (500/200) TAB PO SCH (08:56)
[2017-01-14] MEDS: FISH OIL 1,000 MG CAP PO SCH ×2 (08:56→22:12)
[2017-01-14] MEDS: FLUCONAZOLE 200 MG TAB PO SCH (08:56)
[2017-01-14] MEDS: FERROUS SULFATE (EC) 325 MG TAB PO SCH ×2 (08:56→22:12)
[2017-01-14] MEDS: DOCUSATE SODIUM 100 MG CAP PO SCH ×2 (08:56→22:12)
[2017-01-14] MEDS: MONTELUKAST 10 MG TAB PO SCH (11:34)
--- NOTE | 2017-01-14 12:11 | CONS ---
Date/Time of Note Date/Time of Note DATE: 01/14/17 TIME: 12:10 Consult Date/Type/Reason Admit Date/Time Dec 31, 2016 at 18:45 Type of Consultation: Im Subjective Comfortable Objective pulm-cta sba ambulation Vital Signs Date Time Temp Pulse Resp B/P Pulse Ox O2 Delivery O2 Flow Rate FiO2 01/14/17 08:01 98.4 61 20 108/64 93 Room Air Intake and Output 01/13/17 01/13/17 01/14/17 15:00 23:00 07:00 Intake Total 1400 ml 200 ml Output Total 1 ml 650 ml Balance 1399 ml -450 ml Results/Medications Result Diagram: 01/10/1761501/10/17615 Medications Current Medications Aspirin (Ecotrin) 325 mg BID PO Last administered on 01/14/17 08:55; Admin Dose 325 MG; Start 12/31/16 at 21:00; Stop 01/30/17 at 09:01 Calcium/Vitamin D (Oyster Shell/ Vit-D (500/200)) 1 tab DAILY PO Last administered on 01/14/17 08:56; Admin Dose 1 TAB; Start 01/01/17 at 09:00; Stop 01/30/17 at 09:01 Docusate Sodium (Colace) 100 mg BID PO Last administered on 01/14/17 08:56; Admin Dose 100 MG; Start 12/31/16 at 21:00 Acetaminophen (Tylenol Tab) 650 mg Q4H PRN PO PAIN; Start 12/31/16 at 19:30 Bisacodyl (Dulcolax Supp) 10 mg DAILY PRN [place] CONSTIPATION; Start 12/31/16 at 19 :30 Magnesium Hydroxide (Milk Of Mag) 30 ml BID PRN PO CONSTIPATION; Start at 19:30 Lactulose (Enulose) 20 gm DAILY PRN PO CONSTIPATION; Start 12/31/16 at 19:30 Ferrous Sulfate (Ferrous Sulfate (Ec)) 325 mg BID PO Last administered on 08:56; Admin Dose 325 MG; Start 01/02/17 at 21:00 Fish Oil (Fish Oil) 1,000 mg BID PO Last administered on 01/14/17 08:56; Admin Dose 1,000 MG; Start 01/02/17 at 21:00 Acetaminophen/ Hydrocodone Bitart ([place] (5/325)) 2 tab Q4 PRN PO SEVERE PAIN LEVEL 7-10 Last administered on 01/14/17 11:36; Admin Dose 2 TAB; Start at 13:00 Fluconazole (Diflucan) 200 mg DAILY PO Last administered on 01/14/17 08:56; Admin Dose 200 MG; Start 01/07/17 at 16:00 Assessment/Plan Additional Assessment/Plan Rehab- Left intertrochanteric hip fracture status post ORIF with cephalomedullary nailing. Continue rehab ; home tomorrow Acute left shoulder tendinitis, L elbow contusion - voiding Acute pain syndrome-improving Anemia. SHRAVAN PYLE MD Jan 14, 2017 12:11
--- NOTE | 2017-01-14 12:24 | CONS ---
Date/Time of Note Date/Time of Note DATE: 01/14/17 TIME: 12:23 Consult Date/Type/Reason Admit Date/Time Dec 31, 2016 at 18:45 Type of Consultation: Im Subjective Comfortable. Objective Vital Signs Date Time Temp Pulse Resp B/P Pulse Ox O2 Delivery O2 Flow Rate FiO2 01/14/17 08:01 98.4 61 20 108/64 93 Room Air Intake and Output 01/13/17 01/13/17 01/14/17 15:00 23:00 07:00 Intake Total 1400 ml 200 ml Output Total 1 ml 650 ml Balance 1399 ml -450 ml Exam GENERAL: Elderly lady appears comfortable at rest VITAL SIGNS: per chart NECK: Supple. No JVD or lymphadenopathy. CARDIAC EXAM: S1, S2. No added sounds or murmurs. CHEST: clear bilaterally, No added sounds, rales or wheezes ABDOMEN: Soft, nontender. No guarding or rebound. EXTREMITIES: No cyanosis, clubbing or edema. NEUROLOGIC: Generalized weakness. No focal deficits. Results/Medications Result Diagram: 01/10/1761501/10/17 0616 Medications Current Medications Aspirin (Ecotrin) 325 mg BID PO Last administered on 01/14/17 08:55; Admin Dose 325 MG; Start 12/31/16 at 21:00; Stop 01/30/17 at 09:01 Calcium/Vitamin D (Oyster Shell/ Vit-D (500/200)) 1 tab DAILY PO Last administered on 01/14/17 08:56; Admin Dose 1 TAB; Start 01/01/17 at 09:00; Stop 01/30/17 at 09:01 Docusate Sodium (Colace) 100 mg BID PO Last administered on 01/14/17 08:56; Admin Dose 100 MG; Start 12/31/16 at 21:00 Acetaminophen (Tylenol Tab) 650 mg Q4H PRN PO PAIN; Start 12/31/16 at 19:30 Bisacodyl (Dulcolax Supp) 10 mg DAILY PRN [place] CONSTIPATION; Start 12/31/16 at 19 :30 Magnesium Hydroxide (Milk Of Mag) 30 ml BID PRN PO CONSTIPATION; Start at 19:30 Lactulose (Enulose) 20 gm DAILY PRN PO CONSTIPATION; Start 12/31/16 at 19:30 Ferrous Sulfate (Ferrous Sulfate (Ec)) 325 mg BID PO Last administered on 08:56; Admin Dose 325 MG; Start 01/02/17 at 21:00 Fish Oil (Fish Oil) 1,000 mg BID PO Last administered on 01/14/17 08:56; Admin Dose 1,000 MG; Start 01/02/17 at 21:00 Acetaminophen/ Hydrocodone Bitart ([place] (5/325)) 2 tab Q4 PRN PO SEVERE PAIN LEVEL 7-10 Last administered on 01/14/17 11:36; Admin Dose 2 TAB; Start at 13:00 Fluconazole (Diflucan) 200 mg DAILY PO Last administered on 01/14/17 08:56; Admin Dose 200 MG; Start 01/07/17 at 16:00 Assessment/Plan Chief Complaint/Hosp Course 1. Hip fracture: s/p ORIF on 12/28/2016. -Continue pain control. Outpatient follow-up with orthopedics in 2 weeks after discharge. -Continue multidisciplinary physical therapy and rehabilitation Continues aspirin orthopedics for DVT prophylaxis 2. History of Dyslipidemia. Stable. LDL 78 -Would not recommend statin with elevated LFTs. Stable lipid panel. -Fish oil 3. Hepatic steatosis. Stable. 4. COPD. Stable. -Continue home medications. Outpatient PFTs 5. Anemia with iron deficiency. Monitor H&H dc planning. Problems: [facility], [facility] Jan 14, 2017 12:24
[2017-01-14 20:18] VITALS: BP 115/58; RESP 18
[2017-01-15 02:18] VITALS: BP 110/61; RESP 18
[2017-01-15 07:00] VITALS: BP 98/50; RESP 18
[2017-01-15] MEDS: FERROUS SULFATE (EC) 325 MG TAB PO SCH (08:08)
[2017-01-15] MEDS: DOCUSATE SODIUM 100 MG CAP PO SCH (08:08)
[2017-01-15] MEDS: FLUCONAZOLE 200 MG TAB PO SCH (08:08)
[2017-01-15] MEDS: FISH OIL 1,000 MG CAP PO SCH (08:08)
[2017-01-15] MEDS: ASPIRIN (EC) 325 MG TAB PO SCH (08:08)
[2017-01-15] MEDS: HYDROCODONE/APAP (5/325) TAB PO PRN (08:09)
[2017-01-15] MEDS: CALCIUM/VITAMIN D (500/200) TAB PO SCH (08:09)
--- NOTE | 2017-01-15 11:35 | CONS ---
Date/Time of Note Date/Time of Note DATE: 01/15/17 TIME: 11:34 Consult Date/Type/Reason Admit Date/Time Dec 31, 2016 at 18:45 Type of Consultation: Im Subjective Patient comfortable. Anticipating discharge today. Objective Vital Signs Date Time Temp Pulse Resp B/P Pulse Ox O2 Delivery O2 Flow Rate FiO2 01/15/17 07:00 98.7 81 18 98/50 93 01/14/17 08:01 Room Air Intake and Output 01/14/17 01/14/17 01/15/17 15:00 23:00 07:00 Intake Total 480 ml 790 ml Output Total 700 ml Balance 480 ml 90 ml Exam GENERAL: Elderly lady appears comfortable at rest VITAL SIGNS: per chart NECK: Supple. No JVD or lymphadenopathy. CARDIAC EXAM: S1, S2. No added sounds or murmurs. CHEST: clear bilaterally, No added sounds, rales or wheezes ABDOMEN: Soft, nontender. No guarding or rebound. EXTREMITIES: No cyanosis, clubbing or edema. NEUROLOGIC: Generalized weakness. No focal deficits. Results/Medications Medications Current Medications Aspirin (Ecotrin) 325 mg BID PO Last administered on 01/15/17 08:08; Admin Dose 325 MG; Start 12/31/16 at 21:00; Stop 01/30/17 at 09:01 Calcium/Vitamin D (Oyster Shell/ Vit-D (500/200)) 1 tab DAILY PO Last administered on 01/15/17 08:09; Admin Dose 1 TAB; Start 01/01/17 at 09:00; Stop 01/30/17 at 09:01 Docusate Sodium (Colace) 100 mg BID PO Last administered on 01/15/17 08:08; Admin Dose 100 MG; Start 12/31/16 at 21:00 Acetaminophen (Tylenol Tab) 650 mg Q4H PRN PO PAIN; Start 12/31/16 at 19:30 Bisacodyl (Dulcolax Supp) 10 mg DAILY PRN SC CONSTIPATION; Start 12/31/16 at 19 :30 Magnesium Hydroxide (Milk Of Mag) 30 ml BID PRN PO CONSTIPATION; Start at 19:30 Lactulose (Enulose) 20 gm DAILY PRN PO CONSTIPATION; Start 12/31/16 at 19:30 Ferrous Sulfate (Ferrous Sulfate (Ec)) 325 mg BID PO Last administered on 08:08; Admin Dose 325 MG; Start 01/02/17 at 21:00 Fish Oil (Fish Oil) 1,000 mg BID PO Last administered on 01/15/17 08:08; Admin Dose 1,000 MG; Start 01/02/17 at 21:00 Acetaminophen/ Hydrocodone Bitart ([place] (5/325)) 2 tab Q4 PRN PO SEVERE PAIN LEVEL 7-10 Last administered on 01/15/17 08:09; Admin Dose 2 TAB; Start at 13:00 Fluconazole (Diflucan) 200 mg DAILY PO Last administered on 01/15/17 08:08; Admin Dose 200 MG; Start 01/07/17 at 16:00 Assessment/Plan Chief Complaint/Hosp Course 1. Hip fracture: s/p ORIF on 12/28/2016. -Continue pain control. Outpatient follow-up with orthopedics in 2 weeks after discharge. -Continue multidisciplinary physical therapy and rehabilitation Continues aspirin orthopedics for DVT prophylaxis 2. History of Dyslipidemia. Stable. LDL 78 -Would not recommend statin with elevated LFTs. Stable lipid panel. -Fish oil 3. Hepatic steatosis. Stable. 4. COPD. Stable. -Continue home medications. Outpatient PFTs 5. Anemia with iron deficiency. Monitor H&H dc planning. Follow-up with primary care physician. Problems: PATY CHRISTINA MD, [facility] Jan 15, 2017 11:35
--- NOTE | 2017-01-15 12:05 | DS ---
Date/Time of Note Date/Time of Note DATE: 01/15/17 TIME: 11:58 Discharge Summary Admission/Discharge Info Admit Date/Time Dec 31, 2016 at 18:45 Discharge Date/Time Discharge Diagnosis 1. Left intertrochanteric hip fracture status post ORIF with cephalomedullary nailing. 2. Acute left shoulder tendinitis, status post fall. 3. Improved pain 4. Improvements in self-care and mobility. Patient Condition: Good Hospital Course Patient was admitted for comprehensive interdisciplinary acute rehabilitation. Patient made steady functional gains and improved from a max level to a Supervised level for self care and mobility, including ambulating 150 with the use of a front wheeled walker. Patient is being discharged home with recommendations for home health PT and OT follow up. DME recommendations: FWW; [facility]; Shower Chair Patient will follow up with PMD upon DC. Home Meds Active Scripts Sennosides/Docusate Sodium (Senna Plus Tablet) 1 Each Tablet, 1 TAB PO BID for 7 Days, TAB Prov:KATE SEN MD 12/31/16 Calcium Carbonate/Vitamin D3 (OYSTER SHELL 500 MG + VIT D TB) 1 Each Tablet, 1 TAB PO DAILY for 30 Days, TAB Prov:KATE SEN MD 12/31/16 Hydrocodone Bit-Acetaminophen (Hydrocodone Bit-APAP) 5-325MG Tablet, 2 TAB PO Q6H Y for SEVERE PAIN LEVEL 7-10 for 14 Days, TAB Prov:KATE ESN MD 12/31/16 Aspirin (Aspir-Patti) 325 Mg Tablet.dr, 325 MG PO BID for 30 Days start 01/01 Prov:KATE SEN MD 12/31/16 Reported Medications Simvastatin* (Zocor*) 40 Mg Tablet, 40 MG PO QHS, #30 TAB 12/26/16 Montelukast Sodium* (Singulair*) 10 Mg Tablet, 10 MG PO QHS, #30 TAB 12/26/16 Primary Care Provider Not On Staff Doctor SHRAVAN PYLE MD Jan 15, 2017 12:05
--- NOTE | 2017-01-15 22:33 | PN ---
DATE: 01/15/2017 PSYCHOLOGY - INDIVIDUAL SESSION - [id number] This is a followup on a patient who was seen last week. The patient is preparing for discharge today. The patient is happy about going home. The patient is a little bit frightened about the responsibility that she is going to have when she goes home. Patient does care for her , who has Alzheimer disease and does plan on doing that again when she goes back home. Patient did report that she is going to have 4 hours of help each day, which should help her in caretaking her . The patient is doing better herself. Patient's mood is positive, and she is looking forward to being discharged. Dictated By: Osei Erickson, PHD /marixa/juan carlos /Document#: [id number]
== END 2017-01-15 12:25 | disposition home health service (06) | DRG 560 ==
LOC: VRC 18:45
PROVIDERS: ADMIT Physical Medicine & Rehabilitation; ATTEND Internal Medicine Pulmonary Disease
PROC: F07Z5ZZ Bed Mobility Treatment (ICD-10-PCS; principal; 2016-12-31)
PROC: F08Z2ZZ Grooming/Personal Hygiene Treatment (ICD-10-PCS; 2016-12-31)
DX: S72.142D Displaced intertrochanteric fracture of left femur, subsequent encounter for closed fracture with routine healing (principal); N39.0 Urinary tract infection, site not specified; J44.9 Chronic obstructive pulmonary disease, unspecified; K76.0 Fatty (change of) liver, not elsewhere classified; E78.5 Hyperlipidemia, unspecified; R52 Pain, unspecified; M75.92 Shoulder lesion, unspecified, left shoulder; D50.9 Iron deficiency anemia, unspecified; Z79.82 Long term (current) use of aspirin; W18.30XD Fall on same level, unspecified, subsequent encounter
CPT/HCPCS: 76700; 80048; 80053; 80061; 81001; 83540; 83735; 84100; 85025; 87081; 87086; 97110; 97112; 97116; 97150; 97163; 97530; 97535; 97542; L1820